=== PATIENT | female | born 1940 | race Two or more races ===

== ENCOUNTER 2017-11-01 18:47 | Inpatient (IN) | payer OTHER ==
[~2017-11-01] VITALS: Ht 157.5 cm; Wt 41.9 kg
[2017-11-01 18:47] VITALS: BP 60/35
[~2017-11-01 18:47] MED LIST: ATENOLOL25 MG ORAL; Amikacin 400 MG in NS 110 ML IV SCH; OMEPRAZOLE40 M1 ORAL
[2017-11-01] MEDS ORDERED: Glucagon 1mg Inj IV ONE (19:45)
[2017-11-01 19:49] LABS: MEAN CORPUSCULAR HEMOGLOBIN 35.7 PG (27.0-31.0); MEAN CORPUSCULAR HGB CONC 32.8 G/DL (32.0-36.0); MEAN CORPUSCULAR VOLUME 109 FL (80-99); MEAN PLATELET VOLUME 7.4 FL (6.5-10.1); PLATELET COUNT 190 K/UL (150-450); RED BLOOD COUNT 2.17 M/UL (4.20-5.40); RED CELL DISTRIBUTION WIDTH 13.4 % (11.6-14.8)
[2017-11-01 19:55] LABS: WHITE BLOOD COUNT 23.8 K/UL (4.8-10.8)
[2017-11-01] MEDS ORDERED: Ampicillin/Sulbactam Sod 3 GM in NS 110 ML IV SCH (20:00)
[2017-11-01] MEDS ORDERED: NS 1000ml 1,700 ML IVLG ONE (20:00)
[2017-11-01 20:07] LABS: INR 1.2 (0.9-1.1); PROTHROMBIN TIME 12.3 SEC (9.30-11.50)
[2017-11-01] MEDS ORDERED: Unasyn 3gm Inj ONE (20:23)
[2017-11-01 20:29] LABS: ALANINE AMINOTRANSFERASE 79 U/L (12-78); ALBUMIN/GLOBULIN RATIO 0.4 (1.0-2.7); ANION GAP 14 mmol/L (5-15); ASPARTATE AMINO TRANSFERASE 105 U/L (15-37); CALCIUM 8.1 MG/DL (8.5-10.1); CARBON DIOXIDE 21 MMOL/L (21-32); CHLORIDE 104 MMOL/L (98-107); CKMB 5.9 NG/ML (0.0-3.6); CREATININE 1.6 MG/DL (0.55-1.30); SODIUM 139 MMOL/L (136-145); TOTAL PROTEIN 5.2 G/DL (6.4-8.2)
[2017-11-01 20:30] LABS: POTASSIUM 1.8 MMOL/L (3.5-5.1)
[2017-11-01 20:31] LABS: BILIRUBIN,DIRECT 18.1 MG/DL (0.0-0.3)
[2017-11-01 20:38] LABS: ANISOCYTOSIS 1+; BAND NEUTROPHILS % (MANUAL) 5 % (0-8); LYMPHOCYTES % (MANUAL) 1 % (20-45); MACROCYTES 3+; NEUTROPHILS % (MANUAL) 92 % (45-75); POLYCHROMASIA 1+; TOTAL CELLS COUNTED 100
[2017-11-01 20:39] LABS: PLATELET MORPHOLOGY NORMAL
[2017-11-01 20:40] LABS: BASOPHILS % (MANUAL) 0 % (0-2); EOSINOPHILS % (MANUAL) 0 % (0-3); PLATELET ESTIMATE ADEQUATE
[2017-11-01] MEDS ORDERED: Lidocaine 1% MPF 10mg/ml 5ml ONE (20:45)
[2017-11-01] MEDS ORDERED: Potassium Chloride 40 MEQ in Sodium Chloride 500ML 550 ML IVPB ONE (21:15)
[2017-11-01 22:09] VITALS: BP 106/58
[2017-11-01] MEDS ORDERED: Miralax 17gm pkt ORAL PRN (22:15)
[2017-11-01] MEDS ORDERED: Albuterol/Ipratropium 3ml neb HHN PRN (22:15)
[2017-11-01 23:30] VITALS: BP 78/45
[2017-11-02] VITALS (56 sets, daily range): BP systolic 73–133; BP diastolic 36–62
[2017-11-02] MEDS ORDERED: Levophed 4mg/4mL Inj IV ONE (00:38)
[2017-11-02] MEDS ORDERED: Vancomycin 1gm inj IVPB ONE (00:58)
[2017-11-02] MEDS ORDERED: Amikacin 500mg/2mL Inj ONE (00:59)
[2017-11-02] MEDS ORDERED: Unasyn 3gm Inj ONE (00:59)
[2017-11-02] MEDS ORDERED: Vancomycin 1 GM in D5W 275 ML IVPB SCH (01:00)
--- NOTE | 2017-11-02 01:31 | Emergency Room Report ---
History of Present Illness General Chief Complaint: Back Pain-No Injury Source: Patient Present Illness HPI Patient is a 77-year-old female brought in by EMS after increased back pain. The patient had prior history of pancreatic CA. She was noted markedly jaundice. The patient reports having increased generalized weakness. This had gradual onset. She denied any recent fever. She had recently been hospitalized at [facility]. Allergies: Coded Allergies: CODEINE (Verified Allergy, Unknown, 06/07/16) Patient History Past Medical History: see triage record Now: No Reviewed Nursing Documentation: PMH: Agreed, PSxH: Agreed Nursing Documentation-PMH Past Medical History: No History, Except For Hx Cardiac Problems: Yes Hx Hypertension: Yes Hx Cancer: Yes Hx Gastrointestinal Problems: Yes Hx Neurological Problems: No Review of Systems All Other Systems: limited - by mental status Physical Exam Vital Signs Date Time Temp Pulse Resp B/P (MAP) Pulse Ox O2 Delivery O2 Flow Rate FiO2 11/01/17 18:14 97.9 88 16 70/30 96 Room Air Sp02 EP Interpretation: reviewed, normal General Appearance: alert, GCS 15, Chronically Ill Head: atraumatic Eyes: bilateral eye scleral icterus ENT: normal ENT inspection, hearing grossly normal, normal voice Neck: normal inspection, full range of motion, supple, no bony tend Respiratory: normal inspection, lungs clear, normal breath sounds, no respiratory distress, no retraction, no wheezing Cardiovascular #1: regular rate, rhythm, JVD Gastrointestinal: soft, no guarding, mass Genitourinary: no CVA tenderness Musculoskeletal: normal inspection, back normal, normal range of motion Neurologic: normal inspection, alert, oriented x3, responsive, marzipan maker III-XII nml as tested, speech normal Psychiatric: normal inspection, judgement/insight normal, mood/affect normal Skin: normal inspection, normal color, no rash Procedures Critical Care Time Critical Care Time Patient had a critical medical condition which untreated could potentially result in life or limb threatening injury. Total critical care time excluding procedures approximately 45 minutes. Central Line Central Line : Consent: Emergent Central Line Lumen: triple Maximal Sterile Barrier Tech: yes cap, yes mask, yes sterile gown, yes sterile gloves, yes large sterile sheet, yes hand hygiene, yes chlorhexidine prep Central Line Postion: internal jugular (R) Anesthesia: Lidocaine cc's of anesthesia: 4 Complications: none Central Line Post Position: sutured, good blood return, position confirmed w / CXR Attempts: One Patient Tolerated: Well Complications: None Medical Decision Making Diagnostic Impression: Primary Impression: Gallbladder mass Additional Impressions: Abdominal pain Hypokalemia Hypotension Severe sepsis ER Course Patient presented for abdominal pain and back pain.. Differential diagnoses included ischemic bowel, appendicitis, perforated viscus, abdominal aortic aneurysm, inferior myocardial infarction, viral gastroenteritis Because of complexity of patient's case laboratory testing and imaging studies were ordered. The patient was noted to have markedly elevated liver function tests as well as markedly hypokalemia. Central venous line was placed under sterile technique. The patient started on IV potassium replacement as well as IV fluids. She was given IV antibiotics. Dr. Kike Terry was contacted for inpatient management. Patient started on IV fluids and versus reassessed she was noted to have improvement in her blood pressure as well as perfusion. Patient's cap refill was improved. The patient was noted to have a relative bradycardia. The patient was noted to be hypotensive which may be due to patient's concurrent use of beta blockers and blood pressure medications with infection Labs Test 11/01/17 19:15 White Blood Count 23.8 K/UL (4.8-10.8) Red Blood Count 2.17 M/UL (4.20-5.40) Hemoglobin 7.8 G/DL (12.0-16.0) Hematocrit 23.7 % (37.0-47.0) Mean Corpuscular Volume 109 FL (80-99) Mean Corpuscular Hemoglobin 35.7 PG (27.0-31.0) Mean Corpuscular Hemoglobin Concent 32.8 G/DL (32.0-36.0) Red Cell Distribution Width 13.4 % (11.6-14.8) Platelet Count 190 K/UL (150-450) Mean Platelet Volume 7.4 FL (6.5-10.1) Neutrophils (%) (Auto) % (45.0-75.0) Lymphocytes (%) (Auto) % (20.0-45.0) Monocytes (%) (Auto) % (1.0-10.0) Eosinophils (%) (Auto) % (0.0-3.0) Basophils (%) (Auto) % (0.0-2.0) Differential Total Cells Counted 100 Neutrophils % (Manual) 92 % (45-75) Lymphocytes % (Manual) 1 % (20-45) Monocytes % (Manual) 2 % (1-10) Eosinophils % (Manual) 0 % (0-3) Basophils % (Manual) 0 % (0-2) Band Neutrophils 5 % (0-8) Platelet Estimate Adequate Platelet Morphology Normal Polychromasia 1+ Anisocytosis 1+ Macrocytosis 3+ Prothrombin Time 12.3 SEC (9.30-11.50) Prothromb Time International Ratio 1.2 (0.9-1.1) Activated Partial Thromboplast Time 48 SEC (23-33) Sodium Level 139 MMOL/L (136-145) Potassium Level 1.8 MMOL/L (3.5-5.1) Chloride Level 104 MMOL/L (98-107) Carbon Dioxide Level 21 MMOL/L (21-32) Anion Gap 14 mmol/L (5-15) Blood Urea Nitrogen 38 mg/dL (7-18) Creatinine 1.6 MG/DL (0.55-1.30) Estimat Glomerular Filtration Rate mL/min (>60) Glucose Level 87 MG/DL (74-106) Lactic Acid Level 1.90 mmol/L (0.66-2.22) Calcium Level 8.1 MG/DL (8.5-10.1) Total Bilirubin 20.5 MG/DL (0.2-1.0) Direct Bilirubin 18.1 MG/DL (0.0-0.3) Aspartate Amino Transf (AST/SGOT) 105 U/L (15-37) Alanine Aminotransferase (ALT/SGPT) 79 U/L (12-78) Alkaline Phosphatase 1010 U/L (46-116) Total Creatine Kinase 46 U/L (26-308) Creatine Kinase MB 5.9 NG/ML (0.0-3.6) Creatine Kinase MB Relative Index 12.8 Troponin I 0.312 ng/mL (0.000-0.056) Total Protein 5.2 G/DL (6.4-8.2) Albumin 1.4 G/DL (3.4-5.0) Globulin 3.8 g/dL Albumin/Globulin Ratio 0.4 (1.0-2.7) Last Vital Signs Date Time Temp Pulse Resp B/P (MAP) Pulse Ox O2 Delivery O2 Flow Rate FiO2 11/02/17 00:45 78/38 11/01/17 23:08 97.9 74 17 100 Room Air 63 Status: improved Disposition: ADMITTED INPATIENT Condition: Critical Referrals: NOT CHOSEN IPA/,REFERRING (PCP) Jonnie Thorpe Nov 02, 2017 01:31
[2017-11-02] MEDS ORDERED: Ertapenem (INVanz) 1gm Inj ONE (01:58)
[2017-11-02] MEDS ORDERED: Amikacin 400 MG in NS 110 ML IV SCH (02:00)
[2017-11-02] MEDS ORDERED: Ertapenem 0.5 GM in NS 55 ML IV SCH ×3 (03:00)
[2017-11-02 05:14] LABS: MEAN CORPUSCULAR HEMOGLOBIN 36.1 PG (27.0-31.0); MEAN CORPUSCULAR HGB CONC 32.5 G/DL (32.0-36.0); MEAN CORPUSCULAR VOLUME 111 FL (80-99); MEAN PLATELET VOLUME 7.4 FL (6.5-10.1); PLATELET COUNT 292 K/UL (150-450); RED BLOOD COUNT 2.28 M/UL (4.20-5.40); RED CELL DISTRIBUTION WIDTH 13.9 % (11.6-14.8)
[2017-11-02 05:22] LABS: WHITE BLOOD COUNT 36.8 K/UL (4.8-10.8)
[2017-11-02 05:56] LABS: ALANINE AMINOTRANSFERASE 93 U/L (12-78); ALBUMIN/GLOBULIN RATIO 0.4 (1.0-2.7); ANION GAP 16 mmol/L (5-15); ASPARTATE AMINO TRANSFERASE 130 U/L (15-37); BILIRUBIN,DIRECT 19.8 MG/DL (0.0-0.3); CALCIUM 7.7 MG/DL (8.5-10.1); CARBON DIOXIDE 18 MMOL/L (21-32); CHLORIDE 107 MMOL/L (98-107); CREATININE 1.6 MG/DL (0.55-1.30); POTASSIUM 2.8 MMOL/L (3.5-5.1); SODIUM 140 MMOL/L (136-145); TOTAL PROTEIN 5.5 G/DL (6.4-8.2)
[2017-11-02 07:09] LABS: BAND NEUTROPHILS % (MANUAL) 3 % (0-8); LYMPHOCYTES % (MANUAL) 4 % (20-45); NEUTROPHILS % (MANUAL) 88 % (45-75); TOTAL CELLS COUNTED 100
[2017-11-02 07:11] LABS: ANISOCYTOSIS 1+; BASOPHILS % (MANUAL) 0 % (0-2); EOSINOPHILS % (MANUAL) 0 % (0-3); HYPOCHROMASIA 2+; MACROCYTES 2+; PLATELET ESTIMATE ADEQUATE
[2017-11-02 07:12] LABS: PLATELET MORPHOLOGY NORMAL
[2017-11-02] MEDS: Pantoprazole Inj IVP SCH (08:17)
[2017-11-02] MEDS: Heparin 5000 units/ml inj SUBQ SCH ×2 (08:18→20:23)
[2017-11-02 09:21] LABS: OTHERS PATHOLOGIST COMMENT
[2017-11-02 09:31] LABS: ABG ALLEN TEST POSITIVE; ABG BASE EXCESS -9.5; ABG PCO2 27.1 mmHg (35.0-45.0)
--- NOTE | 2017-11-02 10:16 | GI Initial Consult Note ---
History of Present Illness General Date patient seen: Nov 02, 2017 Time patient seen: 09:57 Reason for Hospitalization: Back Pain-No Injury Present Illness HPI Patient is a 77-year-old female brought in by EMS after increased back pain. The patient had prior history of pancreatic CA. She was noted markedly jaundice. The patient reports having increased generalized weakness. This had gradual onset. She denied any recent fever. She had recently been hospitalized at [facility]. GI consulted for obstructive biliary disease 2/2 GB mass. HPI as noted above. Pt seen in ICU, awake A&Ox4 NAD with apparent jaundice. Patient has history of ERCP performed 06-09-16, see summary of findings below for 4x3cm gallbladder mass. She presents today with leukocytosis, anemia, transaminitis, hyperbilirubinemia, and elevated alkaline phosphatase. Noted patient has abdominal pigtail x 2. ERCP 06-09-16 SUMMARY OF FINDINGS: Gallbladder mass with associated hilar stricture and biliary duct dilatation, status post endoscopic retrograde cholangiopancreatography, sphincterotomy, dilatation, and stent placement. Home Meds Reported Medications Omeprazole (OMEPRAZOLE) 40 Mg Capsule.dr, 40 MG ORAL DAILY, CAP 06/07/16 Atenolol* (TENORMIN*) 25 Mg Tablet, 25 MG ORAL DAILY, TAB 06/07/16 Med list reviewed/reconciled: Yes Allergies: Coded Allergies: CODEINE (Verified Allergy, Unknown, 06/07/16) Patient History History Provided By: Patient, Medical Record PMH Narrative Past Medical History: see triage record Now: No Reviewed Nursing Documentation: PMH: Agreed, PSxH: Agreed Nursing Documentation-PMH Past Medical History: No History, Except For Hx Cardiac Problems: Yes Hx Hypertension: Yes Hx Cancer: Yes Hx Gastrointestinal Problems: Yes Hx Neurological Problems: No Review of Systems All Other Systems: negative except mentioned in HPI Physical Exam Vital Signs Date Time Temp Pulse Resp B/P (MAP) Pulse Ox O2 Delivery O2 Flow Rate FiO2 11/01/17 18:14 97.9 88 16 70/30 96 Room Air 11/02/17 07:01 21 Sp02 EP Interpretation: reviewed, normal Labs Laboratory Tests Test 11/01/17 19:15 11/02/17 04:25 11/02/17 09:25 White Blood Count 23.8 K/UL (4.8-10.8) *H 36.8 K/UL (4.8-10.8) #*H Red Blood Count 2.17 M/UL (4.20-5.40) L 2.28 M/UL (4.20-5.40) L Hemoglobin 7.8 G/DL (12.0-16.0) L 8.2 G/DL (12.0-16.0) L Hematocrit 23.7 % (37.0-47.0) L 25.3 % (37.0-47.0) L Mean Corpuscular Volume 109 FL (80-99) H 111 FL (80-99) H Mean Corpuscular Hemoglobin 35.7 PG (27.0-31.0) H 36.1 PG (27.0-31.0) H Mean Corpuscular Hemoglobin Concent 32.8 G/DL (32.0-36.0) 32.5 G/DL (32.0-36.0) Red Cell Distribution Width 13.4 % (11.6-14.8) 13.9 % (11.6-14.8) Platelet Count 190 K/UL (150-450) 292 K/UL (150-450) # Mean Platelet Volume 7.4 FL (6.5-10.1) 7.4 FL (6.5-10.1) Neutrophils (%) (Auto) % (45.0-75.0) % (45.0-75.0) Lymphocytes (%) (Auto) % (20.0-45.0) % (20.0-45.0) Monocytes (%) (Auto) % (1.0-10.0) % (1.0-10.0) Eosinophils (%) (Auto) % (0.0-3.0) % (0.0-3.0) Basophils (%) (Auto) % (0.0-2.0) % (0.0-2.0) Differential Total Cells Counted 100 100 Neutrophils % (Manual) 92 % (45-75) H 88 % (45-75) H Lymphocytes % (Manual) 1 % (20-45) L 4 % (20-45) L Monocytes % (Manual) 2 % (1-10) 5 % (1-10) Eosinophils % (Manual) 0 % (0-3) 0 % (0-3) Basophils % (Manual) 0 % (0-2) 0 % (0-2) Band Neutrophils 5 % (0-8) 3 % (0-8) Other Cell Type Pathologist comment Platelet Estimate Adequate Adequate Platelet Morphology Normal Normal Polychromasia 1+ Anisocytosis 1+ 1+ Macrocytosis 3+ 2+ Prothrombin Time 12.3 SEC (9.30-11.50) H Prothromb Time International Ratio 1.2 (0.9-1.1) H Activated Partial Thromboplast Time 48 SEC (23-33) H Sodium Level 139 MMOL/L (136-145) 140 MMOL/L (136-145) Potassium Level 1.8 MMOL/L (3.5-5.1) *L 2.8 MMOL/L (3.5-5.1) #L Chloride Level 104 MMOL/L (98-107) 107 MMOL/L (98-107) Carbon Dioxide Level 21 MMOL/L (21-32) 18 MMOL/L (21-32) L Anion Gap 14 mmol/L (5-15) 16 mmol/L (5-15) H Blood Urea Nitrogen 38 mg/dL (7-18) H 34 mg/dL (7-18) H Creatinine 1.6 MG/DL (0.55-1.30) H 1.6 MG/DL (0.55-1.30) H Estimat Glomerular Filtration Rate mL/min (>60) mL/min (>60) Glucose Level 87 MG/DL (74-106) 113 MG/DL (74-106) H Lactic Acid Level 1.90 mmol/L (0.66-2.22) Calcium Level 8.1 MG/DL (8.5-10.1) L 7.7 MG/DL (8.5-10.1) L Total Bilirubin 20.5 MG/DL (0.2-1.0) H 22.1 MG/DL (0.2-1.0) H Direct Bilirubin 18.1 MG/DL (0.0-0.3) H 19.8 MG/DL (0.0-0.3) H Aspartate Amino Transf (AST/SGOT) 105 U/L (15-37) H 130 U/L (15-37) H Alanine Aminotransferase (ALT/SGPT) 79 U/L (12-78) H 93 U/L (12-78) H Alkaline Phosphatase 1010 U/L (46-116) H 1005 U/L (46-116) H Total Creatine Kinase 46 U/L (26-308) Creatine Kinase MB 5.9 NG/ML (0.0-3.6) H Creatine Kinase MB Relative Index 12.8 Troponin I 0.312 ng/mL (0.000-0.056) 1.528 ng/mL (0.000-0.056) Total Protein 5.2 G/DL (6.4-8.2) L 5.5 G/DL (6.4-8.2) L Albumin 1.4 G/DL (3.4-5.0) L 1.5 G/DL (3.4-5.0) L Globulin 3.8 g/dL 4.0 g/dL Albumin/Globulin Ratio 0.4 (1.0-2.7) L 0.4 (1.0-2.7) L Hypochromasia 2+ Arterial Blood pH 7.357 (7.350-7.450) Arterial Blood Partial Pressure CO2 27.1 mmHg (35.0-45.0) L Arterial Blood Partial Pressure O2 95.6 mmHg (75.0-100.0) Arterial Blood HCO3 14.9 mmol/L (22.0-26.0) L Arterial Blood Oxygen Saturation 96.3 % (92.0-98.0) Arterial Blood Base Excess -9.5 Chet Test Positive General Appearance: no apparent distress, alert, thin, other - jaundice Head: normocephalic EENT: PERRL/EOMI, normal ENT inspection Neck: supple Respiratory: normal breath sounds, no respiratory distress Cardiovascular: normal rate Gastrointestinal: normal inspection, non tender, soft, normal bowel sounds, non -distended Rectal: deferred Genitourinary: no CVA tenderness Musculoskeletal: normal inspection, back normal Neurologic: normal inspection, alert, oriented x3, responsive Psychiatric: normal inspection, judgement/insight normal, memory normal Skin: no rash, warm/dry, palpation normal, jaundice Lymphatic: no adenopathy Current Medications Current Medications Medications (Trade) Dose Ordered Sig/Yvonne Route PRN Reason Start Time Stop Time Status Last Admin Dose Admin Acetaminophen (Tylenol) 650 mg Q4H PRN ORAL fever 11/01/17 22:15 1/6/18 22:14 Albuterol/ Ipratropium (Albuterol/ Ipratropium) 3 ml EVERY 4 HOURS PRN HHN Shortness of Breath 11/01/17 22:15 11/06/17 22:14 Amikacin Sulfate 300 mg/Sodium Chloride 56.2 ml @ 110 mls/hr Q24H IV 11/03/17 02:00 11/10/17 01:59 Heparin Sodium (Porcine) (Heparin 5000 units/ml) 5,000 units EVERY 12 HOURS SUBQ 11/02/17 09:00 12/02/17 08:59 11/02/17 08:18 Norepinephrine Bitartrate 4 mg/ Dextrose 254 ml @ 0 mls/hr Q24H IV 11/01/17 22:15 12/01/17 22:14 11/02/17 09:15 Ondansetron HCl (Zofran) 4 mg Q6H PRN IVP Nausea & Vomiting 11/01/17 22:15 12/01/17 22:14 Pantoprazole (Protonix) 40 mg DAILY IVP 11/02/17 09:00 12/02/17 08:59 11/02/17 08:17 Polyethylene Glycol (Miralax) 17 gm DAILYPRN PRN ORAL Constipation 11/01/17 22:15 12/01/17 22:14 Potassium Chloride 100 ml @ 50 mls/hr ONCE ONCE IVPB 11/02/17 09:30 11/02/17 11:29 Sodium Chloride 1,000 ml @ 100 mls/hr Q10H IVLG 11/01/17 22:12 12/01/17 22:11 11/02/17 08:08 Vancomycin HCl (Vanco rx to dose) 1 ea DAILY PRN MISC . 11/02/17 09:45 12/02/17 09:44 GI: Plan Problems: (1) Gallbladder mass (2) Abdominal pain (3) Jaundice (4) Elevated transaminase level (5) Hepatitis (6) Hyperbilirubinemia Plan ERCP scheduled for today. Patient is DNR/DNI, but agreed to have code status changed to FULL during procedure. Discussed with Dr. Schaffer. Thank you for this patient referral, we will follow. Gricel Gar N.P. Nov 02, 2017 10:16
--- NOTE | 2017-11-02 11:09 | History and Physical ---
History of Present Illness General Date patient seen: Nov 02, 2017 Reason for Hospitalization: Back Pain-No Injury Present Illness HPI 77-year-old female with history of pancreatic CA brought in by EMS with CC of increased back pain. She was noted to be markedly jaundice. The patient reports having increased generalized weakness. She denied any recent fever. She was hypotensive and started on Levophed and transferred to ICU. Allergies: Coded Allergies: CODEINE (Verified Allergy, Unknown, 06/07/16) Medication History Scheduled Atenolol* (Tenormin*), 25 MG ORAL DAILY, (Reported) Omeprazole (Omeprazole), 40 MG ORAL DAILY, (Reported) Patient History Healthcare decision maker self Resuscitation status Full Code Advanced Directive on File No Past Medical/Surgical History Past Medical/Surgical History: (1) Pancreas cancer Review of Systems Constitutional: Reports: malaise, weakness Eye: Reports: other - icteric ENT: Reports: no symptoms Respiratory: Reports: no symptoms Cardiovascular: Reports: no symptoms Gastrointestinal: Reports: no symptoms, other - 2 tubes coming out of RUQ, not much draining Genitourinary: Reports: no symptoms Musculoskeletal: Reports: no symptoms Skin: Reports: no symptoms Psychiatric: Reports: no symptoms Physical Exam General Appearance: cachetic Lines, tubes and drains: peripheral HEENT: normocephalic, atraumatic Neck: non-tender, normal alignment Respiratory/Chest: chest wall non-tender, lungs clear Breasts: no masses Cardiovascular/Chest: normal peripheral pulses Abdomen: normal bowel sounds, non tender Genitourinary/Rectal: normal genital exam Extremities: normal range of motion, non-tender Skin Exam: normal pigmentation Last 24 Hour Vital Signs Date Time Temp Pulse Resp B/P (MAP) Pulse Ox O2 Delivery O2 Flow Rate FiO2 11/02/17 10:30 65 11 97/46 100 Room Air 11/02/17 10:00 113/53 11/02/17 10:00 67 16 113/53 100 Room Air 11/02/17 09:30 64 17 105/51 100 Room Air 11/02/17 09:15 116/50 11/02/17 09:00 63 18 116/50 100 Room Air 11/02/17 08:30 98.4 63 15 109/54 100 Room Air 11/02/17 08:00 105/57 11/02/17 08:00 66 10 124/60 100 Room Air 11/02/17 07:31 69 11/02/17 07:30 67 16 105/57 100 Room Air 11/02/17 07:01 64 15 Room Air 21 11/02/17 07:00 110/56 11/02/17 07:00 65 15 110/56 100 Room Air 11/02/17 06:30 66 17 110/53 100 Room Air 11/02/17 06:00 110/53 11/02/17 06:00 66 17 96/42 100 Room Air 11/02/17 05:30 67 15 113/47 100 Room Air 11/02/17 05:00 108/50 11/02/17 05:00 68 17 108/50 100 Room Air 11/02/17 04:30 70 15 106/44 100 Room Air 11/02/17 04:00 73 11/02/17 04:00 97.9 71 18 108/53 100 Room Air 11/02/17 04:00 106/44 11/02/17 03:30 73 16 108/47 100 Room Air 11/02/17 03:00 88/41 11/02/17 03:00 70 17 89/41 100 Room Air 11/02/17 02:30 70 16 97/45 100 Room Air 11/02/17 02:00 72 16 103/51 100 Room Air 11/02/17 02:00 103/51 11/02/17 01:30 65 16 85/45 100 Room Air 11/02/17 01:00 73/36 11/02/17 01:00 63 14 73/36 100 Room Air 11/02/17 00:45 78/38 11/02/17 00:30 63 13 78/38 100 Room Air 11/02/17 00:00 65 12 82/44 100 Room Air 11/02/17 00:00 65 11/01/17 23:30 93.9 66 13 78/45 100 Room Air 11/01/17 23:08 97.9 74 17 106/58 100 Room Air 63 11/01/17 22:09 97.9 63 17 106/58 100 Room Air 11/01/17 19:30 97/53 11/01/17 18:47 74 17 60/35 100 Room Air 11/01/17 18:14 97.9 88 16 70/30 96 Room Air Intake and Output 11/02/17 11/03/17 19:00 07:00 Intake Total 483.82 ml Output Total 0 ml Balance 483.82 ml IV Total 483.82 ml Output Urine Total 0 ml Laboratory Tests Test 11/01/17 19:15 11/02/17 04:25 11/02/17 09:25 White Blood Count 23.8 K/UL (4.8-10.8) *H 36.8 K/UL (4.8-10.8) #*H Red Blood Count 2.17 M/UL (4.20-5.40) L 2.28 M/UL (4.20-5.40) L Hemoglobin 7.8 G/DL (12.0-16.0) L 8.2 G/DL (12.0-16.0) L Hematocrit 23.7 % (37.0-47.0) L 25.3 % (37.0-47.0) L Mean Corpuscular Volume 109 FL (80-99) H 111 FL (80-99) H Mean Corpuscular Hemoglobin 35.7 PG (27.0-31.0) H 36.1 PG (27.0-31.0) H Mean Corpuscular Hemoglobin Concent 32.8 G/DL (32.0-36.0) 32.5 G/DL (32.0-36.0) Red Cell Distribution Width 13.4 % (11.6-14.8) 13.9 % (11.6-14.8) Platelet Count 190 K/UL (150-450) 292 K/UL (150-450) # Mean Platelet Volume 7.4 FL (6.5-10.1) 7.4 FL (6.5-10.1) Neutrophils (%) (Auto) % (45.0-75.0) % (45.0-75.0) Lymphocytes (%) (Auto) % (20.0-45.0) % (20.0-45.0) Monocytes (%) (Auto) % (1.0-10.0) % (1.0-10.0) Eosinophils (%) (Auto) % (0.0-3.0) % (0.0-3.0) Basophils (%) (Auto) % (0.0-2.0) % (0.0-2.0) Differential Total Cells Counted 100 100 Neutrophils % (Manual) 92 % (45-75) H 88 % (45-75) H Lymphocytes % (Manual) 1 % (20-45) L 4 % (20-45) L Monocytes % (Manual) 2 % (1-10) 5 % (1-10) Eosinophils % (Manual) 0 % (0-3) 0 % (0-3) Basophils % (Manual) 0 % (0-2) 0 % (0-2) Band Neutrophils 5 % (0-8) 3 % (0-8) Other Cell Type Pathologist comment Platelet Estimate Adequate Adequate Platelet Morphology Normal Normal Polychromasia 1+ Anisocytosis 1+ 1+ Macrocytosis 3+ 2+ Prothrombin Time 12.3 SEC (9.30-11.50) H Prothromb Time International Ratio 1.2 (0.9-1.1) H Activated Partial Thromboplast Time 48 SEC (23-33) H Sodium Level 139 MMOL/L (136-145) 140 MMOL/L (136-145) Potassium Level 1.8 MMOL/L (3.5-5.1) *L 2.8 MMOL/L (3.5-5.1) #L Chloride Level 104 MMOL/L (98-107) 107 MMOL/L (98-107) Carbon Dioxide Level 21 MMOL/L (21-32) 18 MMOL/L (21-32) L Anion Gap 14 mmol/L (5-15) 16 mmol/L (5-15) H Blood Urea Nitrogen 38 mg/dL (7-18) H 34 mg/dL (7-18) H Creatinine 1.6 MG/DL (0.55-1.30) H 1.6 MG/DL (0.55-1.30) H Estimat Glomerular Filtration Rate mL/min (>60) mL/min (>60) Glucose Level 87 MG/DL (74-106) 113 MG/DL (74-106) H Lactic Acid Level 1.90 mmol/L (0.66-2.22) Calcium Level 8.1 MG/DL (8.5-10.1) L 7.7 MG/DL (8.5-10.1) L Total Bilirubin 20.5 MG/DL (0.2-1.0) H 22.1 MG/DL (0.2-1.0) H Direct Bilirubin 18.1 MG/DL (0.0-0.3) H 19.8 MG/DL (0.0-0.3) H Aspartate Amino Transf (AST/SGOT) 105 U/L (15-37) H 130 U/L (15-37) H Alanine Aminotransferase (ALT/SGPT) 79 U/L (12-78) H 93 U/L (12-78) H Alkaline Phosphatase 1010 U/L (46-116) H 1005 U/L (46-116) H Total Creatine Kinase 46 U/L (26-308) Creatine Kinase MB 5.9 NG/ML (0.0-3.6) H Creatine Kinase MB Relative Index 12.8 Troponin I 0.312 ng/mL (0.000-0.056) 1.528 ng/mL (0.000-0.056) Total Protein 5.2 G/DL (6.4-8.2) L 5.5 G/DL (6.4-8.2) L Albumin 1.4 G/DL (3.4-5.0) L 1.5 G/DL (3.4-5.0) L Globulin 3.8 g/dL 4.0 g/dL Albumin/Globulin Ratio 0.4 (1.0-2.7) L 0.4 (1.0-2.7) L Hypochromasia 2+ Arterial Blood pH 7.357 (7.350-7.450) Arterial Blood Partial Pressure CO2 27.1 mmHg (35.0-45.0) L Arterial Blood Partial Pressure O2 95.6 mmHg (75.0-100.0) Arterial Blood HCO3 14.9 mmol/L (22.0-26.0) L Arterial Blood Oxygen Saturation 96.3 % (92.0-98.0) Arterial Blood Base Excess -9.5 Chet Test Positive Height (Feet): 5 Height (Inches): 2.00 Weight (Pounds): 91 Medications Current Medications Medications (Trade) Dose Ordered Sig/Yvonne Route PRN Reason Start Time Stop Time Status Last Admin Dose Admin Acetaminophen (Tylenol) 650 mg Q4H PRN ORAL fever 11/01/17 22:15 12/01/17 22:14 Albuterol/ Ipratropium (Albuterol/ Ipratropium) 3 ml EVERY 4 HOURS PRN HHN Shortness of Breath 11/01/17 22:15 11/06/17 22:14 Amikacin Sulfate 300 mg/Sodium Chloride 56.2 ml @ 110 mls/hr Q24H IV 11/03/17 02:00 11/10/17 01:59 Heparin Sodium (Porcine) (Heparin 5000 units/ml) 5,000 units EVERY 12 HOURS SUBQ 11/02/17 09:00 12/02/17 08:59 11/02/17 08:18 Norepinephrine Bitartrate 4 mg/ Dextrose 254 ml @ 0 mls/hr Q24H IV 11/01/17 22:15 12/01/17 22:14 11/02/17 09:15 Ondansetron HCl (Zofran) 4 mg Q6H PRN IVP Nausea & Vomiting 11/01/17 22:15 12/01/17 22:14 Pantoprazole (Protonix) 40 mg DAILY IVP 11/02/17 09:00 12/02/17 08:59 11/02/17 08:17 Polyethylene Glycol (Miralax) 17 gm DAILYPRN PRN ORAL Constipation 11/01/17 22:15 12/01/17 22:14 Potassium Chloride 100 ml @ 50 mls/hr ONCE ONCE IVPB 11/02/17 09:30 11/02/17 11:29 11/02/17 10:45 Sodium Chloride 1,000 ml @ 100 mls/hr Q10H IVLG 11/01/17 22:12 12/01/17 22:11 11/02/17 08:08 Vancomycin HCl (Vanco rx to dose) 1 ea DAILY PRN MISC . 11/02/17 09:45 12/02/17 09:44 Assessment/Plan Problem List: (1) Protein-calorie malnutrition, severe ICD Codes: E43 - Unspecified severe protein-calorie malnutrition SNOMED: 287887412 (2) Severe sepsis ICD Codes: A41.9 - Sepsis, unspecified organism; R65.20 - Severe sepsis without septic shock SNOMED: 68384231 (3) Jaundice ICD Codes: R17 - Unspecified jaundice SNOMED: 48133442 (4) Biliary drain displacement ICD Codes: T85.520A - Displacement of bile duct prosthesis, initial encounter SNOMED: 867726725 (5) Pancreas cancer ICD Codes: C25.9 - Malignant neoplasm of pancreas, unspecified SNOMED: 912945795 (6) Hyperbilirubinemia ICD Codes: E80.6 - Other disorders of bilirubin metabolism SNOMED: 20495345 Assessment/Plan NPO IV fluids check cultures IV abx GI and ID evaluation social service for code status. PHILIP SALEEM Nov 02, 2017 11:09
--- NOTE | 2017-11-02 11:17 | Consultation ---
Consult Note Consult Note asked to eval for renal failure Seen in ICU patient examined- data reviewed discussed with RN Patient is a 77-year-old female brought in by EMS after increased back pain. The patient had prior history of pancreatic CA. She was noted markedly jaundice. The patient reports having increased generalized weakness. This had gradual onset. She denied any recent fever. She had recently been hospitalized at [facility]. Allergies: CODEINE (Verified Allergy, Unknown, 06/07/16) Past Medical History: No History, Except For Hx Cardiac Problems: Yes Hx Hypertension: Yes Hx Cancer: Yes Hx Gastrointestinal Problems: Yes Hx Neurological Problems: No . Assessment/Plan Renal failure, Multifactorial: Cancer, Low Aklbumin , Liver failure , Sepsis Other: (1) Protein-calorie malnutrition, severe (2) Severe sepsis (3) Jaundice (4) Biliary drain displacement (5) Pancreas cancer (6) Rising troponin Plan: Correct electrolytes- Monitor renal parameters antibiotics Avoid nephrotoxics prognosis poor LINUS ZUÑIGA Nov 02, 2017 11:17
--- NOTE | 2017-11-02 11:25 | Cardiology Report ---
APPROVED REPORT EKG Measurement Heart [id number] Atrial fibrillation Nonspecific T wave abnormality Abnormal ECG
[2017-11-02 11:48] LABS: MAGNESIUM 1.9 MG/DL (1.8-2.4); PHOSPHORUS 3.4 MG/DL (2.5-4.9)
--- NOTE | 2017-11-02 12:52 | Consultation ---
History of Present Illness General Date patient seen: Nov 02, 2017 Time patient seen: 12:52 Chief Complaint: Back Pain-No Injury Present Illness HPI 77 y/o F with hx of HTN, GERD, pancreatic CA, GB mass s/p pigtail catheter x2 presents to ED on 11/01 with increased back pain and generalized weakness. 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 Allergies: Coded Allergies: CODEINE (Verified Allergy, Unknown, 06/07/16) Medication History Scheduled Atenolol* (Tenormin*), 25 MG ORAL DAILY, (Reported) Omeprazole (Omeprazole), 40 MG ORAL DAILY, (Reported) Patient History Healthcare decision maker self Resuscitation status Full Code Advanced Directive on File No Patient History Narrative Pmhx: as above Shx reviewed Fhx non contributory Review of Systems ROS Narrative unable to obtain Physical Exam Physical Exam Narrative not done as patient in procedure suite Last 24 Hour Vital Signs Date Time Temp Pulse Resp B/P (MAP) Pulse Ox O2 Delivery O2 Flow Rate FiO2 11/02/17 11:00 66 19 98/50 100 Room Air 11/02/17 11:00 97/46 11/02/17 10:30 65 11 97/46 100 Room Air 11/02/17 10:00 113/53 11/02/17 10:00 67 16 113/53 100 Room Air 11/02/17 09:30 64 17 105/51 100 Room Air 11/02/17 09:15 116/50 11/02/17 09:00 63 18 116/50 100 Room Air 11/02/17 08:30 98.4 63 15 109/54 100 Room Air 11/02/17 08:00 105/57 11/02/17 08:00 66 10 124/60 100 Room Air 11/02/17 07:31 69 11/02/17 07:30 67 16 105/57 100 Room Air 11/02/17 07:01 64 15 Room Air 21 11/02/17 07:00 110/56 11/02/17 07:00 65 15 110/56 100 Room Air 11/02/17 06:30 66 17 110/53 100 Room Air 11/02/17 06:00 110/53 11/02/17 06:00 66 17 96/42 100 Room Air 11/02/17 05:30 67 15 113/47 100 Room Air 11/02/17 05:00 108/50 11/02/17 05:00 68 17 108/50 100 Room Air 11/02/17 04:30 70 15 106/44 100 Room Air 11/02/17 04:00 73 11/02/17 04:00 97.9 71 18 108/53 100 Room Air 11/02/17 04:00 106/44 11/02/17 03:30 73 16 108/47 100 Room Air 11/02/17 03:00 88/41 11/02/17 03:00 70 17 89/41 100 Room Air 11/02/17 02:30 70 16 97/45 100 Room Air 11/02/17 02:00 72 16 103/51 100 Room Air 11/02/17 02:00 103/51 11/02/17 01:30 65 16 85/45 100 Room Air 11/02/17 01:00 73/36 11/02/17 01:00 63 14 73/36 100 Room Air 11/02/17 00:45 78/38 11/02/17 00:30 63 13 78/38 100 Room Air 11/02/17 00:00 65 12 82/44 100 Room Air 11/02/17 00:00 65 11/01/17 23:30 93.9 66 13 78/45 100 Room Air 11/01/17 23:08 97.9 74 17 106/58 100 Room Air 63 11/01/17 22:09 97.9 63 17 106/58 100 Room Air 11/01/17 19:30 97/53 11/01/17 18:47 74 17 60/35 100 Room Air 11/01/17 18:14 97.9 88 16 70/30 96 Room Air Intake and Output 11/02/17 11/03/17 19:00 07:00 Intake Total 483.82 ml Output Total 0 ml Balance 483.82 ml IV Total 483.82 ml Output Urine Total 0 ml Laboratory Tests Test 11/01/17 19:15 11/02/17 04:25 11/02/17 09:25 White Blood Count 23.8 K/UL (4.8-10.8) *H 36.8 K/UL (4.8-10.8) #*H Red Blood Count 2.17 M/UL (4.20-5.40) L 2.28 M/UL (4.20-5.40) L Hemoglobin 7.8 G/DL (12.0-16.0) L 8.2 G/DL (12.0-16.0) L Hematocrit 23.7 % (37.0-47.0) L 25.3 % (37.0-47.0) L Mean Corpuscular Volume 109 FL (80-99) H 111 FL (80-99) H Mean Corpuscular Hemoglobin 35.7 PG (27.0-31.0) H 36.1 PG (27.0-31.0) H Mean Corpuscular Hemoglobin Concent 32.8 G/DL (32.0-36.0) 32.5 G/DL (32.0-36.0) Red Cell Distribution Width 13.4 % (11.6-14.8) 13.9 % (11.6-14.8) Platelet Count 190 K/UL (150-450) 292 K/UL (150-450) # Mean Platelet Volume 7.4 FL (6.5-10.1) 7.4 FL (6.5-10.1) Neutrophils (%) (Auto) % (45.0-75.0) % (45.0-75.0) Lymphocytes (%) (Auto) % (20.0-45.0) % (20.0-45.0) Monocytes (%) (Auto) % (1.0-10.0) % (1.0-10.0) Eosinophils (%) (Auto) % (0.0-3.0) % (0.0-3.0) Basophils (%) (Auto) % (0.0-2.0) % (0.0-2.0) Differential Total Cells Counted 100 100 Neutrophils % (Manual) 92 % (45-75) H 88 % (45-75) H Lymphocytes % (Manual) 1 % (20-45) L 4 % (20-45) L Monocytes % (Manual) 2 % (1-10) 5 % (1-10) Eosinophils % (Manual) 0 % (0-3) 0 % (0-3) Basophils % (Manual) 0 % (0-2) 0 % (0-2) Band Neutrophils 5 % (0-8) 3 % (0-8) Other Cell Type Pathologist comment Platelet Estimate Adequate Adequate Platelet Morphology Normal Normal Polychromasia 1+ Anisocytosis 1+ 1+ Macrocytosis 3+ 2+ Prothrombin Time 12.3 SEC (9.30-11.50) H Prothromb Time International Ratio 1.2 (0.9-1.1) H Activated Partial Thromboplast Time 48 SEC (23-33) H Sodium Level 139 MMOL/L (136-145) 140 MMOL/L (136-145) Potassium Level 1.8 MMOL/L (3.5-5.1) *L 2.8 MMOL/L (3.5-5.1) #L Chloride Level 104 MMOL/L (98-107) 107 MMOL/L (98-107) Carbon Dioxide Level 21 MMOL/L (21-32) 18 MMOL/L (21-32) L Anion Gap 14 mmol/L (5-15) 16 mmol/L (5-15) H Blood Urea Nitrogen 38 mg/dL (7-18) H 34 mg/dL (7-18) H Creatinine 1.6 MG/DL (0.55-1.30) H 1.6 MG/DL (0.55-1.30) H Estimat Glomerular Filtration Rate mL/min (>60) mL/min (>60) Glucose Level 87 MG/DL (74-106) 113 MG/DL (74-106) H Lactic Acid Level 1.90 mmol/L (0.66-2.22) Calcium Level 8.1 MG/DL (8.5-10.1) L 7.7 MG/DL (8.5-10.1) L Total Bilirubin 20.5 MG/DL (0.2-1.0) H 22.1 MG/DL (0.2-1.0) H Direct Bilirubin 18.1 MG/DL (0.0-0.3) H 19.8 MG/DL (0.0-0.3) H Aspartate Amino Transf (AST/SGOT) 105 U/L (15-37) H 130 U/L (15-37) H Alanine Aminotransferase (ALT/SGPT) 79 U/L (12-78) H 93 U/L (12-78) H Alkaline Phosphatase 1010 U/L (46-116) H 1005 U/L (46-116) H Total Creatine Kinase 46 U/L (26-308) Creatine Kinase MB 5.9 NG/ML (0.0-3.6) H Creatine Kinase MB Relative Index 12.8 Troponin I 0.312 ng/mL (0.000-0.056) 1.528 ng/mL (0.000-0.056) Total Protein 5.2 G/DL (6.4-8.2) L 5.5 G/DL (6.4-8.2) L Albumin 1.4 G/DL (3.4-5.0) L 1.5 G/DL (3.4-5.0) L Globulin 3.8 g/dL 4.0 g/dL Albumin/Globulin Ratio 0.4 (1.0-2.7) L 0.4 (1.0-2.7) L Hypochromasia 2+ Phosphorus Level 3.4 MG/DL (2.5-4.9) Magnesium Level 1.9 MG/DL (1.8-2.4) Arterial Blood pH 7.357 (7.350-7.450) Arterial Blood Partial Pressure CO2 27.1 mmHg (35.0-45.0) L Arterial Blood Partial Pressure O2 95.6 mmHg (75.0-100.0) Arterial Blood HCO3 14.9 mmol/L (22.0-26.0) L Arterial Blood Oxygen Saturation 96.3 % (92.0-98.0) Arterial Blood Base Excess -9.5 Chet Test Positive Height (Feet): 5 Height (Inches): 2.00 Weight (Pounds): 91 Medications Current Medications Medications (Trade) Dose Ordered Sig/Yvonne Route PRN Reason Start Time Stop Time Status Last Admin Dose Admin Acetaminophen (Tylenol) 650 mg Q4H PRN ORAL fever 11/01/17 22:15 12/01/17 22:14 Albuterol/ Ipratropium (Albuterol/ Ipratropium) 3 ml EVERY 4 HOURS PRN HHN Shortness of Breath 11/01/17 22:15 11/06/17 22:14 Amikacin Sulfate 300 mg/Sodium Chloride 56.2 ml @ 110 mls/hr Q24H IV 11/03/17 02:00 11/10/17 01:59 Heparin Sodium (Porcine) (Heparin 5000 units/ml) 5,000 units EVERY 12 HOURS SUBQ 11/02/17 09:00 12/02/17 08:59 11/02/17 08:18 Norepinephrine Bitartrate 4 mg/ Dextrose 254 ml @ 0 mls/hr Q24H IV 11/01/17 22:15 12/01/17 22:14 11/02/17 09:15 Ondansetron HCl (Zofran) 4 mg Q6H PRN IVP Nausea & Vomiting 11/01/17 22:15 12/01/17 22:14 Pantoprazole (Protonix) 40 mg DAILY IVP 11/02/17 09:00 12/02/17 08:59 11/02/17 08:17 Polyethylene Glycol (Miralax) 17 gm DAILYPRN PRN ORAL Constipation 11/01/17 22:15 12/01/17 22:14 Sodium Chloride 1,000 ml @ 100 mls/hr Q10H IVLG 11/01/17 22:12 12/01/17 22:11 11/02/17 08:08 Vancomycin HCl (Vanco rx to dose) 1 ea DAILY PRN MISC . 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 Will continue to follow along with you. Discussed with GIO. Venus Tapia M.D. Nov 02, 2017 12:52
[2017-11-02] MEDS ORDERED: Iothalamate Meglumine 60% 30ML INJ ONE (14:41)
--- NOTE | 2017-11-02 14:49 | Diagnostic Imaging Report ---
Indication: Shortness of breath Technique: XRAY CHEST 1 V Comparison: Coalition that images of the lower chest on CT of the abdomen 06/08/2016 Findings: Heart size and mediastinal contours are within normal limits. Atherosclerotic calcification is noted in the aortic arch. There is no focal airspace consolidation, pleural effusion or pneumothorax. No evidence of pulmonary edema. Multilevel degenerative changes are seen in the thoracic spine. No acute osseous abnormality seen. Portions of a catheter noted in the right upper quadrant, question retained biliary drainage catheter. Impression: No radiographic evidence of acute cardiopulmonary disease.
--- NOTE | 2017-11-02 15:04 | Anethesia Preoperative Eval ---
Anesthesia Pre-op PMH/ROS General Date of Evaluation: Nov 02, 2017 Time of Evaluation: 14:56 Anesthesiologist: navneet ASA Score: ASA 4 Mallampati Score Class I : Soft palate, uvula, fauces, pillars visible Class II: Soft palate, uvula, fauces visible Class III: Soft palate, base of uvula visible Class IV: Only hard plate visible Mallampati Classification: Class II Surgeon: bri Diagnosis: jaundice Surgical Procedure: ercp Allergies: Coded Allergies: CODEINE (Verified Allergy, Unknown, 06/07/16) Medications: see eMAR Past Medical History Cardiovascular: Reports: HTN Gastrointestinal/Genitourinary: Reports: other - pancreatic cancer, gallbladder disease Anesthesia Pre-op Phys. Exam Physician Exam Last Vital Signs Date Time Temp Pulse Resp B/P (MAP) Pulse Ox O2 Delivery O2 Flow Rate FiO2 11/02/17 14:00 93/50 11/02/17 14:00 69 15 100 Room Air 11/02/17 12:00 98.0 11/02/17 07:01 21 Gastrointestinal: other Airway Exam Mallampati Score: Class II MO: limited Neck: supple TMD: 2fb ROM: limited Anesthesia Pre-op A/P Labs Hematology Test 11/01/17 19:15 11/02/17 04:25 White Blood Count 23.8 K/UL (4.8-10.8) *H 36.8 K/UL (4.8-10.8) #*H Red Blood Count 2.17 M/UL (4.20-5.40) L 2.28 M/UL (4.20-5.40) L Hemoglobin 7.8 G/DL (12.0-16.0) L 8.2 G/DL (12.0-16.0) L Hematocrit 23.7 % (37.0-47.0) L 25.3 % (37.0-47.0) L Mean Corpuscular Volume 109 FL (80-99) H 111 FL (80-99) H Mean Corpuscular Hemoglobin 35.7 PG (27.0-31.0) H 36.1 PG (27.0-31.0) H Mean Corpuscular Hemoglobin Concent 32.8 G/DL (32.0-36.0) 32.5 G/DL (32.0-36.0) Red Cell Distribution Width 13.4 % (11.6-14.8) 13.9 % (11.6-14.8) Platelet Count 190 K/UL (150-450) 292 K/UL (150-450) # Mean Platelet Volume 7.4 FL (6.5-10.1) 7.4 FL (6.5-10.1) Neutrophils (%) (Auto) % (45.0-75.0) % (45.0-75.0) Lymphocytes (%) (Auto) % (20.0-45.0) % (20.0-45.0) Monocytes (%) (Auto) % (1.0-10.0) % (1.0-10.0) Eosinophils (%) (Auto) % (0.0-3.0) % (0.0-3.0) Basophils (%) (Auto) % (0.0-2.0) % (0.0-2.0) Differential Total Cells Counted 100 100 Neutrophils % (Manual) 92 % (45-75) H 88 % (45-75) H Lymphocytes % (Manual) 1 % (20-45) L 4 % (20-45) L Monocytes % (Manual) 2 % (1-10) 5 % (1-10) Eosinophils % (Manual) 0 % (0-3) 0 % (0-3) Basophils % (Manual) 0 % (0-2) 0 % (0-2) Band Neutrophils 5 % (0-8) 3 % (0-8) Other Cell Type Pathologist comment Platelet Estimate Adequate Adequate Platelet Morphology Normal Normal Polychromasia 1+ Anisocytosis 1+ 1+ Macrocytosis 3+ 2+ Hypochromasia 2+ Coagulation Test 11/01/17 19:15 Prothrombin Time 12.3 SEC (9.30-11.50) H Prothromb Time International Ratio 1.2 (0.9-1.1) H Activated Partial Thromboplast Time 48 SEC (23-33) H Chemistry Test 11/01/17 19:15 11/02/17 04:25 Sodium Level 139 MMOL/L (136-145) 140 MMOL/L (136-145) Potassium Level 1.8 MMOL/L (3.5-5.1) *L 2.8 MMOL/L (3.5-5.1) #L Chloride Level 104 MMOL/L (98-107) 107 MMOL/L (98-107) Carbon Dioxide Level 21 MMOL/L (21-32) 18 MMOL/L (21-32) L Anion Gap 14 mmol/L (5-15) 16 mmol/L (5-15) H Blood Urea Nitrogen 38 mg/dL (7-18) H 34 mg/dL (7-18) H Creatinine 1.6 MG/DL (0.55-1.30) H 1.6 MG/DL (0.55-1.30) H Estimat Glomerular Filtration Rate mL/min (>60) mL/min (>60) Glucose Level 87 MG/DL (74-106) 113 MG/DL (74-106) H Lactic Acid Level 1.90 mmol/L (0.66-2.22) Calcium Level 8.1 MG/DL (8.5-10.1) L 7.7 MG/DL (8.5-10.1) L Total Bilirubin 20.5 MG/DL (0.2-1.0) H 22.1 MG/DL (0.2-1.0) H Direct Bilirubin 18.1 MG/DL (0.0-0.3) H 19.8 MG/DL (0.0-0.3) H Aspartate Amino Transf (AST/SGOT) 105 U/L (15-37) H 130 U/L (15-37) H Alanine Aminotransferase (ALT/SGPT) 79 U/L (12-78) H 93 U/L (12-78) H Alkaline Phosphatase 1010 U/L (46-116) H 1005 U/L (46-116) H Total Creatine Kinase 46 U/L (26-308) Creatine Kinase MB 5.9 NG/ML (0.0-3.6) H Creatine Kinase MB Relative Index 12.8 Troponin I 0.312 ng/mL (0.000-0.056) 1.528 ng/mL (0.000-0.056) Total Protein 5.2 G/DL (6.4-8.2) L 5.5 G/DL (6.4-8.2) L Albumin 1.4 G/DL (3.4-5.0) L 1.5 G/DL (3.4-5.0) L Globulin 3.8 g/dL 4.0 g/dL Albumin/Globulin Ratio 0.4 (1.0-2.7) L 0.4 (1.0-2.7) L Phosphorus Level 3.4 MG/DL (2.5-4.9) Magnesium Level 1.9 MG/DL (1.8-2.4) Risk Assessment & Plan Assessment: asa4 patient is on levophed infusion for cardiovascular support. reports having external procedure done at outside facility in the past. Plan: external procedure to be performed by radiologist. if unsuccessful, consider mac Status Change Before Surgery: No Pre-Antibiotics Drug: REINALDO Stevenson Nov 02, 2017 15:04
[2017-11-02] MEDS ORDERED: Lidocaine 1% Plain 30 ml INJ ONE (15:45)
[2017-11-02] MEDS ORDERED: Heparin 2000 units/Ns 1000ml INJ ONE (15:45)
--- NOTE | 2017-11-02 16:13 | Pre-Procedure Note/Attestation ---
Pre-Procedure Note/Attestation Complete Prior to Procedure Planned Procedure: not applicable Procedure Narrative: percutaneous cholangiogram, possible biliar drain exchange Indications for Procedure Pre-Operative Diagnosis: malfuncioing biliary drains, sepsis Attestation I attest that I discussed the nature of the procedure; its benefits; risks and complications; and alternatives (and the risks and benefits of such alternatives ), prior to the procedure, with the patient (or the patient's legal sales representative electric service). I attest that, if there was a reasonable possibility of needing a blood transfusion, the patient (or the patient's legal sales representative electric service) was given the [facility] standardized written summary, pursuant to the Christian Stevan Blood Safety Act ([place] Health and Safety Code # 1645, as amended). I attest that I re-evaluated the patient just prior to the surgery and that there has been no change in the patient's H&P, except as documented below: Kennedy Rowley M.D. Nov 02, 2017 16:13
--- NOTE | 2017-11-02 17:40 | Operative Note - PDOC ---
Operative Note Operative Note Date of Operation/Procedure: Nov 02, 2017 Chief Complaint: Malfunctioning biliary drains Pre-op Diagnosis: malfuncioing biliary drains, sepsis Procedure: cholangiogram via existing catheter, bliary drain exchange. Post-op Diagnosis: succesful exchange of right duct biliary drain Post-op Diagnosis: same as pre-op Surgeon: kennedy oreilly (IR) Anesthesia: local Specimen: none Estimated Blood Loss: none Drains: other Implant(s) used?: Yes Indications for Procedure malfunctioning biliary drain Description of Procedure Patient with 2 percutaneous biliary drains. The left drain was completely dislodged and outside of the patient (it was taped up to her skin), the right duct drain was in place. Attempted to try to gain access via the previous left duct tract - probed with a kumpe catehter and wire. This was ultimately not successful. The tract had completely closed. Injection via the right duct approach drain showed occlusion of the drain. The drain was exchanged over a wire for a new 8.5F biliary drain, with pigtail in the jejunum and sideholes in the right ducts. There is filling of the left duct system upon injection of the right duct drain. drain connected to gravity drainage bag. Not confident that all left sided ducts will be drained via the existing right-sided access. If LFts dont improve and sepsis doesnt resolve, would recommend CT of the abdomen to assess the ductal and post-surgical anatomy. She may indeed need a new left duct approach drain. Kennedy Oreilly M.D. Nov 02, 2017 17:40
[2017-11-02] MEDS: Meropenem 1 GM in NS 55 ML IVPB SCH (18:11)
--- NOTE | 2017-11-02 19:28 | Diagnostic Imaging Report ---
Indication: Sepsis, malfunctioning indwelling biliary drains. Technique: Patient referred for cholangiogram with possible biliary tube exchange. Of note, this exam revealed an the left biliary drain was totally removed and taped to the skin. Patient was placed supine on the angiography table and the abdomen prepped and draped in usual sterile fashion. A preprocedure timeout performed as per protocol. Attempts were made to cannulate the tract of the previous left duct approach percutaneous drainage catheter. Kumpe was advanced and used with injection of contrast and a Glidewire attempts to cannulate the tract. This was ultimately unsuccessful. Contrast was injected via the indwelling right duct approach drainage catheter and cholangiogram was obtained. The hub of the catheter was cut and a stiff shaft Glidewire was advanced over which a new 8.5 Greenlandic biliary drainage catheter was advanced. The Zanoni loop was formed and locked in the jejunum. Contrast is injected via the new tube, confirming appropriate positioning. Cholangiograms obtained via the new tube to delineate the biliary anatomy. Tube was secured the skin with 2-0 Ethilon and a sterile dressing was applied. Patient tolerated the procedure well, left department stable condition. Total fluoroscopy time 6.4 minutes. Total fluoroscopy dose 521 cGy-cm2. FINDINGS/IMPRESSION: Existing left duct approach percutaneous biliary drainage catheter was noted to be totally removed when patient arrived in IR. In fact, the catheter was just totally outside the patient, taped to the skin. Patient reports the catheter had been out for about a week. Attempts to cannulate the track of the previous left duct approach catheter unsuccessful. The tract had totally closed. Cholangiogram via indwelling catheter shows occlusion of the biliary drainage catheter with multiple sideholes outside of the biliary system. Successful replacement for a new 8.5 Greenlandic biliary drainage catheter. Patient status post hepaticojejunostomy. There is filling of right-sided duct via injection of the new catheter. There is also communication via a somewhat narrowed duct/channel to fill the the left ductal system.
[2017-11-03] VITALS (27 sets, daily range): BP systolic 94–129; BP diastolic 42–69
[2017-11-03] MEDS ORDERED: NS IV SCH (02:00)
[2017-11-03] MEDS ORDERED: AMIKACIN IV SCH (02:00)
[2017-11-03] MEDS: Meropenem 1 GM in NS 55 ML IVPB SCH ×2 (03:06→14:56)
[2017-11-03 05:58] LABS: MEAN CORPUSCULAR HGB CONC 32.6 G/DL (32.0-36.0); MEAN CORPUSCULAR VOLUME 110 FL (80-99); MEAN PLATELET VOLUME 6.8 FL (6.5-10.1); PLATELET COUNT 210 K/UL (150-450); RED BLOOD COUNT 2.03 M/UL (4.20-5.40); RED CELL DISTRIBUTION WIDTH 14.3 % (11.6-14.8)
[2017-11-03 06:26] LABS: HEMOGLOBIN A1C 5.1 % (4.3-6.0)
[2017-11-03 06:38] LABS: MAGNESIUM 1.8 MG/DL (1.8-2.4); PHOSPHORUS 4.2 MG/DL (2.5-4.9)
[2017-11-03 06:39] LABS: ALANINE AMINOTRANSFERASE 81 U/L (12-78); ALBUMIN/GLOBULIN RATIO 0.3 (1.0-2.7); ANION GAP 15 mmol/L (5-15); ASPARTATE AMINO TRANSFERASE 129 U/L (15-37); CALCIUM 7.8 MG/DL (8.5-10.1); CARBON DIOXIDE 15 MMOL/L (21-32); CHLORIDE 113 MMOL/L (98-107); CHOLESTEROL 155 MG/DL (< 200); CREATININE 2.1 MG/DL (0.55-1.30); POTASSIUM 3.2 MMOL/L (3.5-5.1); SODIUM 143 MMOL/L (136-145); THYROID STIMULATING HORMONE 0.195 uiU/mL (0.358-3.740); TOTAL PROTEIN 4.8 G/DL (6.4-8.2)
[2017-11-03 06:45] LABS: BILIRUBIN,DIRECT 17.1 MG/DL (0.0-0.3)
[2017-11-03] MEDS: Pantoprazole Inj IVP SCH (08:21)
[2017-11-03] MEDS: Heparin 5000 units/ml inj SUBQ SCH ×2 (08:24→20:59)
--- NOTE | 2017-11-03 08:47 | General Progress Note ---
Assessment/Plan Problem List: (1) Biliary drain displacement ICD Codes: T85.520A - Displacement of bile duct prosthesis, initial encounter SNOMED: 191274787 (2) Jaundice ICD Codes: R17 - Unspecified jaundice SNOMED: 58028162 (3) Gallbladder mass ICD Codes: K82.8 - Other specified diseases of gallbladder SNOMED: 563803235 (4) Abdominal pain ICD Codes: R10.9 - Unspecified abdominal pain SNOMED: 48756392 Assessment/Plan s/p external biliary drainage yesterday by radiology improving labs abx start diet getting blood today Subjective ROS Limited/Unobtainable: Yes Allergies: Coded Allergies: CODEINE (Verified Allergy, Unknown, 06/07/16) Subjective feeling weal Objective Last 24 Hour Vital Signs Date Time Temp Pulse Resp B/P (MAP) Pulse Ox O2 Delivery O2 Flow Rate FiO2 11/03/17 07:14 76 16 Room Air 21 11/03/17 07:00 73 15 96/46 100 Room Air 11/03/17 06:00 71 15 94/47 100 Room Air 11/03/17 05:00 72 17 103/46 100 Room Air 11/03/17 04:00 98.0 77 19 103/53 100 Room Air 11/03/17 04:00 78 11/03/17 03:00 78 21 97/44 100 Room Air 11/03/17 02:45 79 21 99/46 100 Room Air 11/03/17 02:30 81 20 109/42 100 Room Air 11/03/17 02:15 78 20 104/47 100 Room Air 11/03/17 02:00 78 20 103/44 100 Room Air 11/03/17 02:00 103/44 11/03/17 01:45 78 20 101/45 100 Room Air 11/03/17 01:30 75 20 113/51 100 Room Air 11/03/17 01:15 75 20 108/52 100 Room Air 11/03/17 01:00 75 20 115/52 100 Room Air 11/03/17 01:00 115/52 11/03/17 00:45 75 18 115/52 100 Room Air 11/03/17 00:30 74 18 121/53 100 Room Air 11/03/17 00:15 74 20 123/53 100 Room Air 11/03/17 00:00 74 11/03/17 00:00 125/53 11/03/17 00:00 97.9 74 19 125/53 100 Room Air 11/02/17 23:45 73 19 105/58 100 Room Air 11/02/17 23:30 73 18 116/51 100 Room Air 11/02/17 23:15 72 18 116/51 100 Room Air 11/02/17 23:00 114/55 11/02/17 23:00 71 18 121/53 100 Room Air 11/02/17 22:45 71 18 121/53 100 Room Air 11/02/17 22:30 68 18 124/54 100 Room Air 11/02/17 22:00 68 18 116/54 100 Room Air 11/02/17 22:00 124/54 11/02/17 21:30 73 18 123/52 100 Room Air 11/02/17 21:00 69 20 116/53 100 Room Air 11/02/17 21:00 116/54 11/02/17 20:30 68 20 111/53 100 Room Air 11/02/17 20:00 66 11/02/17 20:00 111/53 11/02/17 20:00 97.7 68 20 115/50 100 Room Air 11/02/17 19:30 65 18 118/51 100 Room Air 11/02/17 19:00 66 18 116/53 100 Room Air 11/02/17 18:41 65 16 Room Air 21 11/02/17 18:30 66 21 117/47 100 Room Air 11/02/17 18:11 104/49 11/02/17 18:00 98.0 70 17 86/36 100 Room Air 11/02/17 17:30 68 19 111/49 100 Room Air 11/02/17 16:55 67 18 118/60 100 Room Air 11/02/17 16:50 67 18 126/61 100 Room Air 11/02/17 16:45 64 18 133/58 100 Room Air 11/02/17 16:40 62 18 130/56 100 Room Air 11/02/17 16:35 68 18 124/62 100 Room Air 11/02/17 16:30 69 18 128/62 100 Room Air 11/02/17 16:25 65 18 115/56 100 Room Air 11/02/17 16:20 68 18 127/61 100 Room Air 11/02/17 16:02 68 22 11/02/17 15:00 68 18 108/50 100 Room Air 11/02/17 15:00 108/50 11/02/17 15:00 108/50 11/02/17 14:30 68 18 93/50 100 Room Air 11/02/17 14:00 93/50 11/02/17 14:00 69 15 103/57 100 Room Air 11/02/17 13:30 67 17 100/48 100 Room Air 11/02/17 13:00 65 17 103/48 100 Room Air 11/02/17 13:00 103/48 11/02/17 12:31 65 11/02/17 12:30 64 15 90/37 100 Room Air 11/02/17 12:00 98.0 66 18 103/51 100 Room Air 11/02/17 12:00 103/51 11/02/17 11:30 65 18 108/48 100 Room Air 11/02/17 11:00 66 19 98/50 100 Room Air 11/02/17 11:00 97/46 11/02/17 10:30 65 11 97/46 100 Room Air 11/02/17 10:00 113/53 11/02/17 10:00 67 16 113/53 100 Room Air 11/02/17 09:30 64 17 105/51 100 Room Air 11/02/17 09:15 116/50 11/02/17 09:00 63 18 116/50 100 Room Air Laboratory Tests 11/02/17 09:25: Arterial Blood pH 7.357, Arterial Blood Partial Pressure CO2 27.1L, Arterial Blood Partial Pressure O2 95.6, Arterial Blood HCO3 14.9L, Arterial Blood Oxygen Saturation 96.3, Arterial Blood Base Excess -9.5, Chet Test Positive 11/03/17 05:00: White Blood Count 19.0H, Red Blood Count 2.03L, Hemoglobin 7.3L, Hematocrit 22.5L, Mean Corpuscular Volume 110H, Mean Corpuscular Hemoglobin 36.0H, Mean Corpuscular Hemoglobin Concent 32.6, Red Cell Distribution Width 14.3, Platelet Count 210, Mean Platelet Volume 6.8, Neutrophils (%) (Auto) , Lymphocytes (%) ( Auto) , Monocytes (%) (Auto) , Eosinophils (%) (Auto) , Basophils (%) (Auto) , Neutrophils % (Manual) [Pending], Lymphocytes % (Manual) [Pending], Platelet Estimate [Pending], Platelet Morphology [Pending], Sodium Level 143, Potassium Level 3.2L, Chloride Level 113H, Carbon Dioxide Level 15L, Anion Gap 15, Blood Urea Nitrogen 43H, Creatinine 2.1H, Estimat Glomerular Filtration Rate , Glucose Level 65L, Hemoglobin A1c 5.1, Uric Acid 5.0, Calcium Level 7.8L, Phosphorus Level 4.2, Magnesium Level 1.8, Total Bilirubin 18.8H, Direct Bilirubin 17.1H, Gamma Glutamyl Transpeptidase 568H, Aspartate Amino Transf (AST /SGOT) 129H, Alanine Aminotransferase (ALT/SGPT) 81H, Alkaline Phosphatase 1226H , Ammonia 45H, C-Reactive Protein, Quantitative 18.0H, Pro-B-Type Natriuretic Peptide 13292D, Total Protein 4.8L, Albumin 1.2L, Globulin 3.6, Albumin/ Globulin Ratio 0.3L, Triglycerides Level 176H, Cholesterol Level 155, LDL Cholesterol 163H, HDL Cholesterol 5L, Cholesterol/HDL Ratio 31.0H, Thyroid Stimulating Hormone (TSH) 0.195L, Random Vancomycin Level 10.1 Height (Feet): 5 Height (Inches): 2.00 Weight (Pounds): 110 General Appearance: no apparent distress EENT: normal ENT inspection Neck: supple Cardiovascular: normal rate Respiratory/Chest: decreased breath sounds Abdomen: normal bowel sounds, non tender, soft Extremities: non-tender ERNESTO RAMIRES Nov 03, 2017 08:47
--- NOTE | 2017-11-03 08:50 | Infectious Diseases Prog Note ---
Assessment/Plan Assessment/Plan Abx: IV Vancomycin 11/02- IV Amikacin 11/02- Ertapenem 11/02 Flagyl x1 01/02 Assessment: Septic shock- likely due to cholangitis- r/o bacteremia -CXR no acute disease -u/a, sp, bcx p Cholangitis 2ry to obstructed biliary drain s/p IR Cholangiogram with placement of new drainage -IR Cholangio: Patient with 2 percutaneous biliary drains. The left drain was completely dislodged and outside of the patient (it was taped up to her skin ), the right duct drain was in place. The tract had completely closed. Injection via the right duct approach drain showed occlusion of the drain. The drain was exchanged over a wire for a new 8.5F biliary drain, with pigtail in the jejunum and sideholes in the right ducts. There is filling of the left duct system upon injection of the right duct drain. drain connected to gravity drainage bag. Not confident that all left sided ducts will be drained via the existing right-sided access. If LFts dont improve and sepsis doesnt resolve, would recommend CT of the abdomen to assess the ductal and post-surgical anatomy. She may indeed need a new left duct approach drain. Leukocytosis-improving Cholestatic>hepatotoxic liver injury- 2ry to obstructive pancreatic mass/ cholangitis; improving CELSA, worsening pancreatic CA, GB mass s/p pigtail catheter x2 HTN, GERD Plan: -Continue IV Vanco and Meropenem #2 and d/c Amikacin #2 (now sepsis improving after source control) pending cultures -11/02 SP Ertapenem #1 -f/u cx -Monitor CBC/BMP, temperatures Thank you for this consultation. Will continue to follow along with you. Discussed with RN. Subjective Allergies: Coded Allergies: CODEINE (Verified Allergy, Unknown, 06/07/16) Subjective afebrile leukocytosis improving s/p replacement biliary drain levophed going down Objective Vital Signs Last 24 Hour Vital Signs Date Time Temp Pulse Resp B/P (MAP) Pulse Ox O2 Delivery O2 Flow Rate FiO2 11/03/17 07:14 76 16 Room Air 21 11/03/17 07:00 73 15 96/46 100 Room Air 11/03/17 06:00 71 15 94/47 100 Room Air 11/03/17 05:00 72 17 103/46 100 Room Air 11/03/17 04:00 98.0 77 19 103/53 100 Room Air 11/03/17 04:00 78 11/03/17 03:00 78 21 97/44 100 Room Air 11/03/17 02:45 79 21 99/46 100 Room Air 11/03/17 02:30 81 20 109/42 100 Room Air 11/03/17 02:15 78 20 104/47 100 Room Air 11/03/17 02:00 78 20 103/44 100 Room Air 11/03/17 02:00 103/44 11/03/17 01:45 78 20 101/45 100 Room Air 11/03/17 01:30 75 20 113/51 100 Room Air 11/03/17 01:15 75 20 108/52 100 Room Air 11/03/17 01:00 75 20 115/52 100 Room Air 11/03/17 01:00 115/52 11/03/17 00:45 75 18 115/52 100 Room Air 11/03/17 00:30 74 18 121/53 100 Room Air 11/03/17 00:15 74 20 123/53 100 Room Air 11/03/17 00:00 74 11/03/17 00:00 125/53 11/03/17 00:00 97.9 74 19 125/53 100 Room Air 11/02/17 23:45 73 19 105/58 100 Room Air 11/02/17 23:30 73 18 116/51 100 Room Air 11/02/17 23:15 72 18 116/51 100 Room Air 11/02/17 23:00 114/55 11/02/17 23:00 71 18 121/53 100 Room Air 11/02/17 22:45 71 18 121/53 100 Room Air 11/02/17 22:30 68 18 124/54 100 Room Air 11/02/17 22:00 68 18 116/54 100 Room Air 11/02/17 22:00 124/54 11/02/17 21:30 73 18 123/52 100 Room Air 11/02/17 21:00 69 20 116/53 100 Room Air 11/02/17 21:00 116/54 11/02/17 20:30 68 20 111/53 100 Room Air 11/02/17 20:00 66 11/02/17 20:00 111/53 11/02/17 20:00 97.7 68 20 115/50 100 Room Air 11/02/17 19:30 65 18 118/51 100 Room Air 11/02/17 19:00 66 18 116/53 100 Room Air 11/02/17 18:41 65 16 Room Air 21 11/02/17 18:30 66 21 117/47 100 Room Air 11/02/17 18:11 104/49 11/02/17 18:00 98.0 70 17 86/36 100 Room Air 11/02/17 17:30 68 19 111/49 100 Room Air 11/02/17 16:55 67 18 118/60 100 Room Air 11/02/17 16:50 67 18 126/61 100 Room Air 11/02/17 16:45 64 18 133/58 100 Room Air 11/02/17 16:40 62 18 130/56 100 Room Air 11/02/17 16:35 68 18 124/62 100 Room Air 11/02/17 16:30 69 18 128/62 100 Room Air 11/02/17 16:25 65 18 115/56 100 Room Air 11/02/17 16:20 68 18 127/61 100 Room Air 11/02/17 16:02 68 22 11/02/17 15:00 68 18 108/50 100 Room Air 11/02/17 15:00 108/50 11/02/17 15:00 108/50 11/02/17 14:30 68 18 93/50 100 Room Air 11/02/17 14:00 93/50 11/02/17 14:00 69 15 103/57 100 Room Air 11/02/17 13:30 67 17 100/48 100 Room Air 11/02/17 13:00 65 17 103/48 100 Room Air 11/02/17 13:00 103/48 11/02/17 12:31 65 11/02/17 12:30 64 15 90/37 100 Room Air 11/02/17 12:00 98.0 66 18 103/51 100 Room Air 11/02/17 12:00 103/51 11/02/17 11:30 65 18 108/48 100 Room Air 11/02/17 11:00 66 19 98/50 100 Room Air 11/02/17 11:00 97/46 11/02/17 10:30 65 11 97/46 100 Room Air 11/02/17 10:00 113/53 11/02/17 10:00 67 16 113/53 100 Room Air 11/02/17 09:30 64 17 105/51 100 Room Air 11/02/17 09:15 116/50 11/02/17 09:00 63 18 116/50 100 Room Air Height (Feet): 5 Height (Inches): 2.00 Weight (Pounds): 110 Objective General Appearance: no apparent distress EENT: normal ENT inspection Neck: supple Cardiovascular: normal rate Respiratory/Chest: decreased breath sounds Abdomen: normal bowel sounds, non tender, soft Extremities: non-tender Laboratory Tests Test 11/02/17 09:25 11/03/17 05:00 Arterial Blood pH 7.357 (7.350-7.450) Arterial Blood Partial Pressure CO2 27.1 mmHg (35.0-45.0) L Arterial Blood Partial Pressure O2 95.6 mmHg (75.0-100.0) Arterial Blood HCO3 14.9 mmol/L (22.0-26.0) L Arterial Blood Oxygen Saturation 96.3 % (92.0-98.0) Arterial Blood Base Excess -9.5 Chet Test Positive White Blood Count 19.0 K/UL (4.8-10.8) H Red Blood Count 2.03 M/UL (4.20-5.40) L Hemoglobin 7.3 G/DL (12.0-16.0) L Hematocrit 22.5 % (37.0-47.0) L Mean Corpuscular Volume 110 FL (80-99) H Mean Corpuscular Hemoglobin 36.0 PG (27.0-31.0) H Mean Corpuscular Hemoglobin Concent 32.6 G/DL (32.0-36.0) Red Cell Distribution Width 14.3 % (11.6-14.8) Platelet Count 210 K/UL (150-450) Mean Platelet Volume 6.8 FL (6.5-10.1) Neutrophils (%) (Auto) % (45.0-75.0) Lymphocytes (%) (Auto) % (20.0-45.0) Monocytes (%) (Auto) % (1.0-10.0) Eosinophils (%) (Auto) % (0.0-3.0) Basophils (%) (Auto) % (0.0-2.0) Neutrophils % (Manual) Pending Lymphocytes % (Manual) Pending Platelet Estimate Pending Platelet Morphology Pending Sodium Level 143 MMOL/L (136-145) Potassium Level 3.2 MMOL/L (3.5-5.1) L Chloride Level 113 MMOL/L (98-107) H Carbon Dioxide Level 15 MMOL/L (21-32) L Anion Gap 15 mmol/L (5-15) Blood Urea Nitrogen 43 mg/dL (7-18) H Creatinine 2.1 MG/DL (0.55-1.30) H Estimat Glomerular Filtration Rate mL/min (>60) Glucose Level 65 MG/DL (74-106) L Hemoglobin A1c 5.1 % (4.3-6.0) Uric Acid 5.0 MG/DL (2.6-7.2) Calcium Level 7.8 MG/DL (8.5-10.1) L Phosphorus Level 4.2 MG/DL (2.5-4.9) Magnesium Level 1.8 MG/DL (1.8-2.4) Total Bilirubin 18.8 MG/DL (0.2-1.0) H Direct Bilirubin 17.1 MG/DL (0.0-0.3) H Gamma Glutamyl Transpeptidase 568 U/L (5-85) H Aspartate Amino Transf (AST/SGOT) 129 U/L (15-37) H Alanine Aminotransferase (ALT/SGPT) 81 U/L (12-78) H Alkaline Phosphatase 1226 U/L (46-116) H Ammonia 45 umol/L (11-32) H C-Reactive Protein, Quantitative 18.0 mg/dL (0.00-0.90) H Pro-B-Type Natriuretic Peptide 16850 pg/mL (0-125) H Total Protein 4.8 G/DL (6.4-8.2) L Albumin 1.2 G/DL (3.4-5.0) L Globulin 3.6 g/dL Albumin/Globulin Ratio 0.3 (1.0-2.7) L Triglycerides Level 176 MG/DL (30-150) H Cholesterol Level 155 MG/DL (< 200) LDL Cholesterol 163 mg/dL (<100) H HDL Cholesterol 5 MG/DL (40-60) L Cholesterol/HDL Ratio 31.0 (3.3-4.4) H Thyroid Stimulating Hormone (TSH) 0.195 uiU/mL (0.358-3.740) Random Vancomycin Level 10.1 ug/mL Current Medications Medications (Trade) Dose Ordered Sig/Yvonne Route PRN Reason Start Time Stop Time Status Last Admin Dose Admin Acetaminophen (Tylenol) 650 mg Q4H PRN ORAL fever 11/01/17 22:15 12/01/17 22:14 Albuterol/ Ipratropium (Albuterol/ Ipratropium) 3 ml EVERY 4 HOURS PRN HHN Shortness of Breath 11/01/17 22:15 11/06/17 22:14 Amikacin Sulfate 300 mg/Sodium Chloride 56.2 ml @ 110 mls/hr Q24H IV 11/03/17 02:00 11/10/17 01:59 11/03/17 01:49 Heparin Sodium (Porcine) (Heparin 5000 units/ml) 5,000 units EVERY 12 HOURS SUBQ 11/02/17 09:00 12/02/17 08:59 11/03/17 08:24 Meropenem 1 gm/ Sodium Chloride 55 ml @ 110 mls/hr Q12H IVPB 11/02/17 15:00 11/07/17 14:59 11/03/17 03:06 Norepinephrine Bitartrate 4 mg/ Dextrose 254 ml @ 0 mls/hr Q24H IV 11/01/17 22:15 12/01/17 22:14 11/02/17 18:11 Ondansetron HCl (Zofran) 4 mg Q6H PRN IVP Nausea & Vomiting 11/01/17 22:15 12/01/17 22:14 Pantoprazole (Protonix) 40 mg DAILY IVP 11/02/17 09:00 12/02/17 08:59 11/03/17 08:21 Polyethylene Glycol (Miralax) 17 gm DAILYPRN PRN ORAL Constipation 11/01/17 22:15 12/01/17 22:14 Sodium Chloride 1,000 ml @ 100 mls/hr Q10H IVLG 11/01/17 22:12 12/01/17 22:11 11/03/17 08:20 Vancomycin HCl (Vanco rx to dose) 1 ea DAILY PRN MISC . 11/02/17 09:45 12/02/17 09:44 Vancomycin HCl 1 gm/Dextrose 275 ml @ 183.708 mls/hr ONCE ONCE IVPB 11/03/17 09:00 11/03/17 10:29 11/03/17 08:21 Venus Tapia M.D. Nov 03, 2017 08:50
--- NOTE | 2017-11-03 08:53 | Nephrology Progress Note ---
Assessment/Plan Problem List: (1) Acute renal failure (ARF) (2) Pancreas cancer (3) Jaundice Assessment Renal failure, Multifactorial: Cancer, Low Aklbumin , Liver failure , Sepsis Other: (1) Protein-calorie malnutrition, severe (2) Severe sepsis (3) Jaundice (4) Biliary drain displacement (5) Pancreas cancer (6) Rising troponin Plan Plan: now DNR DNI Correct electrolytes- Monitor renal parameters antibiotics Avoid nephrotoxics prognosis poor no dialysis in view of underlying neoplastic process Subjective ROS Limited/Unobtainable: No Constitutional: Reports: malaise, weakness Objective Objective Last 24 Hour Vital Signs Date Time Temp Pulse Resp B/P (MAP) Pulse Ox O2 Delivery O2 Flow Rate FiO2 11/03/17 07:14 76 16 Room Air 21 11/03/17 07:00 73 15 96/46 100 Room Air 11/03/17 06:00 71 15 94/47 100 Room Air 11/03/17 05:00 72 17 103/46 100 Room Air 11/03/17 04:00 98.0 77 19 103/53 100 Room Air 11/03/17 04:00 78 11/03/17 03:00 78 21 97/44 100 Room Air 11/03/17 02:45 79 21 99/46 100 Room Air 11/03/17 02:30 81 20 109/42 100 Room Air 11/03/17 02:15 78 20 104/47 100 Room Air 11/03/17 02:00 78 20 103/44 100 Room Air 11/03/17 02:00 103/44 11/03/17 01:45 78 20 101/45 100 Room Air 11/03/17 01:30 75 20 113/51 100 Room Air 11/03/17 01:15 75 20 108/52 100 Room Air 11/03/17 01:00 75 20 115/52 100 Room Air 11/03/17 01:00 115/52 11/03/17 00:45 75 18 115/52 100 Room Air 11/03/17 00:30 74 18 121/53 100 Room Air 11/03/17 00:15 74 20 123/53 100 Room Air 11/03/17 00:00 74 11/03/17 00:00 125/53 11/03/17 00:00 97.9 74 19 125/53 100 Room Air 11/02/17 23:45 73 19 105/58 100 Room Air 11/02/17 23:30 73 18 116/51 100 Room Air 11/02/17 23:15 72 18 116/51 100 Room Air 11/02/17 23:00 114/55 11/02/17 23:00 71 18 121/53 100 Room Air 11/02/17 22:45 71 18 121/53 100 Room Air 11/02/17 22:30 68 18 124/54 100 Room Air 11/02/17 22:00 68 18 116/54 100 Room Air 11/02/17 22:00 124/54 11/02/17 21:30 73 18 123/52 100 Room Air 11/02/17 21:00 69 20 116/53 100 Room Air 11/02/17 21:00 116/54 11/02/17 20:30 68 20 111/53 100 Room Air 11/02/17 20:00 66 11/02/17 20:00 111/53 11/02/17 20:00 97.7 68 20 115/50 100 Room Air 11/02/17 19:30 65 18 118/51 100 Room Air 11/02/17 19:00 66 18 116/53 100 Room Air 11/02/17 18:41 65 16 Room Air 11/02/17 18:30 66 21 117/47 100 Room Air 11/02/17 18:11 104/49 11/02/17 18:00 98.0 70 17 86/36 100 Room Air 11/02/17 17:30 68 19 111/49 100 Room Air 11/02/17 16:55 67 18 118/60 100 Room Air 11/02/17 16:50 67 18 126/61 100 Room Air 11/02/17 16:45 64 18 133/58 100 Room Air 11/02/17 16:40 62 18 130/56 100 Room Air 11/02/17 16:35 68 18 124/62 100 Room Air 11/02/17 16:30 69 18 128/62 100 Room Air 11/02/17 16:25 65 18 115/56 100 Room Air 11/02/17 16:20 68 18 127/61 100 Room Air 11/02/17 16:02 68 22 11/02/17 15:00 68 18 108/50 100 Room Air 11/02/17 15:00 108/50 11/02/17 15:00 108/50 11/02/17 14:30 68 18 93/50 100 Room Air 11/02/17 14:00 93/50 11/02/17 14:00 69 15 103/57 100 Room Air 11/02/17 13:30 67 17 100/48 100 Room Air 11/02/17 13:00 65 17 103/48 100 Room Air 11/02/17 13:00 103/48 11/02/17 12:31 65 11/02/17 12:30 64 15 90/37 100 Room Air 11/02/17 12:00 98.0 66 18 103/51 100 Room Air 11/02/17 12:00 103/51 11/02/17 11:30 65 18 108/48 100 Room Air 11/02/17 11:00 66 19 98/50 100 Room Air 11/02/17 11:00 97/46 11/02/17 10:30 65 11 97/46 100 Room Air 11/02/17 10:00 113/53 11/02/17 10:00 67 16 113/53 100 Room Air 11/02/17 09:30 64 17 105/51 100 Room Air 11/02/17 09:15 116/50 11/02/17 09:00 63 18 116/50 100 Room Air Laboratory Tests 11/02/17 09:25: Arterial Blood pH 7.357, Arterial Blood Partial Pressure CO2 27.1L, Arterial Blood Partial Pressure O2 95.6, Arterial Blood HCO3 14.9L, Arterial Blood Oxygen Saturation 96.3, Arterial Blood Base Excess -9.5, Chet Test Positive 11/03/17 05:00: White Blood Count 19.0H, Red Blood Count 2.03L, Hemoglobin 7.3L, Hematocrit 22.5L, Mean Corpuscular Volume 110H, Mean Corpuscular Hemoglobin 36.0H, Mean Corpuscular Hemoglobin Concent 32.6, Red Cell Distribution Width 14.3, Platelet Count 210, Mean Platelet Volume 6.8, Neutrophils (%) (Auto) , Lymphocytes (%) ( Auto) , Monocytes (%) (Auto) , Eosinophils (%) (Auto) , Basophils (%) (Auto) , Neutrophils % (Manual) [Pending], Lymphocytes % (Manual) [Pending], Platelet Estimate [Pending], Platelet Morphology [Pending], Sodium Level 143, Potassium Level 3.2L, Chloride Level 113H, Carbon Dioxide Level 15L, Anion Gap 15, Blood Urea Nitrogen 43H, Creatinine 2.1H, Estimat Glomerular Filtration Rate , Glucose Level 65L, Hemoglobin A1c 5.1, Uric Acid 5.0, Calcium Level 7.8L, Phosphorus Level 4.2, Magnesium Level 1.8, Total Bilirubin 18.8H, Direct Bilirubin 17.1H, Gamma Glutamyl Transpeptidase 568H, Aspartate Amino Transf (AST /SGOT) 129H, Alanine Aminotransferase (ALT/SGPT) 81H, Alkaline Phosphatase 1226H , Ammonia 45H, C-Reactive Protein, Quantitative 18.0H, Pro-B-Type Natriuretic Peptide 01641N, Total Protein 4.8L, Albumin 1.2L, Globulin 3.6, Albumin/ Globulin Ratio 0.3L, Triglycerides Level 176H, Cholesterol Level 155, LDL Cholesterol 163H, HDL Cholesterol 5L, Cholesterol/HDL Ratio 31.0H, Thyroid Stimulating Hormone (TSH) 0.195L, Random Vancomycin Level 10.1 Height (Feet): 5 Height (Inches): 2.00 Weight (Pounds): 110 General Appearance: no apparent distress, other - jaundiced Cardiovascular: tachycardia Respiratory/Chest: decreased breath sounds Abdomen: distended LINUS ZUÑIGA Nov 03, 2017 08:53
[2017-11-03] MEDS ORDERED: Vancomycin 1gm/D5W 275ml IVPB ONE ×2 (09:00)
[2017-11-03 10:24] LABS: ANISOCYTOSIS 1+; BAND NEUTROPHILS % (MANUAL) 0 % (0-8); BASOPHILS % (MANUAL) 0 % (0-2); EOSINOPHILS % (MANUAL) 0 % (0-3); HYPOCHROMASIA 3+; LYMPHOCYTES % (MANUAL) 3 % (20-45); MACROCYTES 1+; NEUTROPHILS % (MANUAL) 92 % (45-75); PLATELET ESTIMATE ADEQUATE; PLATELET MORPHOLOGY NORMAL; TOTAL CELLS COUNTED 100
--- NOTE | 2017-11-03 11:15 | Pulmonolgy Critical Care Note ---
Critical Care - Asmt/Plan Problems: (1) Severe sepsis (2) Acute renal failure (ARF) (3) Biliary drain displacement (4) Hyperbilirubinemia (5) Jaundice Respiratory: monitor respiratory rate, adjust FIO2 Cardiac: continue to monitor HR/BP Renal: F/U I&O, keep IV fluid Infectious Disease: check cultures Gastrointestinal: continue feedings/current rate Endocrine: check TSH Hematologic: monitor H/H Neurologic: PRN Morphine Affect: PRN ativan Prophylaxis: Protonix Discussed with: nurses, consultants Critical Care - Objective Last 24 Hour Vital Signs Date Time Temp Pulse Resp B/P (MAP) Pulse Ox O2 Delivery O2 Flow Rate FiO2 11/03/17 10:00 98.0 11/03/17 10:00 70 24 115/55 100 Room Air 11/03/17 09:00 72 18 109/54 100 Room Air 11/03/17 08:00 98.1 74 18 103/52 100 Room Air 11/03/17 08:00 71 11/03/17 07:14 76 16 Room Air 21 11/03/17 07:00 73 15 96/46 100 Room Air 11/03/17 06:00 71 15 94/47 100 Room Air 11/03/17 05:00 72 17 103/46 100 Room Air 11/03/17 04:00 98.0 77 19 103/53 100 Room Air 11/03/17 04:00 78 11/03/17 03:00 78 21 97/44 100 Room Air 11/03/17 02:45 79 21 99/46 100 Room Air 11/03/17 02:30 81 20 109/42 100 Room Air 11/03/17 02:15 78 20 104/47 100 Room Air 11/03/17 02:00 78 20 103/44 100 Room Air 11/03/17 02:00 103/44 11/03/17 01:45 78 20 101/45 100 Room Air 11/03/17 01:30 75 20 113/51 100 Room Air 11/03/17 01:15 75 20 108/52 100 Room Air 11/03/17 01:00 75 20 115/52 100 Room Air 11/03/17 01:00 115/52 11/03/17 00:45 75 18 115/52 100 Room Air 11/03/17 00:30 74 18 121/53 100 Room Air 11/03/17 00:15 74 20 123/53 100 Room Air 11/03/17 00:00 74 11/03/17 00:00 125/53 11/03/17 00:00 97.9 74 19 125/53 100 Room Air 11/02/17 23:45 73 19 105/58 100 Room Air 11/02/17 23:30 73 18 116/51 100 Room Air 11/02/17 23:15 72 18 116/51 100 Room Air 11/02/17 23:00 114/55 11/02/17 23:00 71 18 121/53 100 Room Air 11/02/17 22:45 71 18 121/53 100 Room Air 11/02/17 22:30 68 18 124/54 100 Room Air 11/02/17 22:00 68 18 116/54 100 Room Air 11/02/17 22:00 124/54 11/02/17 21:30 73 18 123/52 100 Room Air 11/02/17 21:00 69 20 116/53 100 Room Air 11/02/17 21:00 116/54 11/02/17 20:30 68 20 111/53 100 Room Air 11/02/17 20:00 66 11/02/17 20:00 111/53 11/02/17 20:00 97.7 68 20 115/50 100 Room Air 11/02/17 19:30 65 18 118/51 100 Room Air 11/02/17 19:00 66 18 116/53 100 Room Air 11/02/17 18:41 65 16 Room Air 21 11/02/17 18:30 66 21 117/47 100 Room Air 11/02/17 18:11 104/49 11/02/17 18:00 98.0 70 17 86/36 100 Room Air 11/02/17 17:30 68 19 111/49 100 Room Air 11/02/17 16:55 67 18 118/60 100 Room Air 11/02/17 16:50 67 18 126/61 100 Room Air 11/02/17 16:45 64 18 133/58 100 Room Air 11/02/17 16:40 62 18 130/56 100 Room Air 11/02/17 16:35 68 18 124/62 100 Room Air 11/02/17 16:30 69 18 128/62 100 Room Air 11/02/17 16:25 65 18 115/56 100 Room Air 11/02/17 16:20 68 18 127/61 100 Room Air 11/02/17 16:02 68 22 11/02/17 15:00 68 18 108/50 100 Room Air 11/02/17 15:00 108/50 11/02/17 15:00 108/50 11/02/17 14:30 68 18 93/50 100 Room Air 11/02/17 14:00 93/50 11/02/17 14:00 69 15 103/57 100 Room Air 11/02/17 13:30 67 17 100/48 100 Room Air 11/02/17 13:00 65 17 103/48 100 Room Air 11/02/17 13:00 103/48 11/02/17 12:31 65 11/02/17 12:30 64 15 90/37 100 Room Air 11/02/17 12:00 98.0 66 18 103/51 100 Room Air 11/02/17 12:00 103/51 11/02/17 11:30 65 18 108/48 100 Room Air Status: sedated Condition: critical HEENT: atraumatic Neck: full ROM Lungs: clear Heart: HR/BP stable Abdomen: soft, non-tender Extremities: edema Decubiti: location Critical Care - Subjective ROS Limited/Unobtainable: Yes - 2 ICU Day: 2 Interval Events: getting blood, refusing ERCP FI02: 21 Sputum Amount: None I&O: Intake and Output 11/03/17 11/04/17 19:00 07:00 Intake Total 240 ml Output Total 0 ml Balance 240 ml Other 240 ml Output Urine Total 0 ml Labs: Laboratory Tests Test 11/03/17 05:00 White Blood Count 19.0 K/UL (4.8-10.8) H Red Blood Count 2.03 M/UL (4.20-5.40) L Hemoglobin 7.3 G/DL (12.0-16.0) L Hematocrit 22.5 % (37.0-47.0) L Mean Corpuscular Volume 110 FL (80-99) H Mean Corpuscular Hemoglobin 36.0 PG (27.0-31.0) H Mean Corpuscular Hemoglobin Concent 32.6 G/DL (32.0-36.0) Red Cell Distribution Width 14.3 % (11.6-14.8) Platelet Count 210 K/UL (150-450) Mean Platelet Volume 6.8 FL (6.5-10.1) Neutrophils (%) (Auto) % (45.0-75.0) Lymphocytes (%) (Auto) % (20.0-45.0) Monocytes (%) (Auto) % (1.0-10.0) Eosinophils (%) (Auto) % (0.0-3.0) Basophils (%) (Auto) % (0.0-2.0) Differential Total Cells Counted 100 Neutrophils % (Manual) 92 % (45-75) H Lymphocytes % (Manual) 3 % (20-45) L Monocytes % (Manual) 5 % (1-10) Eosinophils % (Manual) 0 % (0-3) Basophils % (Manual) 0 % (0-2) Band Neutrophils 0 % (0-8) Platelet Estimate Adequate Platelet Morphology Normal Hypochromasia 3+ Anisocytosis 1+ Macrocytosis 1+ Sodium Level 143 MMOL/L (136-145) Potassium Level 3.2 MMOL/L (3.5-5.1) L Chloride Level 113 MMOL/L (98-107) H Carbon Dioxide Level 15 MMOL/L (21-32) L Anion Gap 15 mmol/L (5-15) Blood Urea Nitrogen 43 mg/dL (7-18) H Creatinine 2.1 MG/DL (0.55-1.30) H Estimat Glomerular Filtration Rate mL/min (>60) Glucose Level 65 MG/DL (74-106) L Hemoglobin A1c 5.1 % (4.3-6.0) Uric Acid 5.0 MG/DL (2.6-7.2) Calcium Level 7.8 MG/DL (8.5-10.1) L Phosphorus Level 4.2 MG/DL (2.5-4.9) Magnesium Level 1.8 MG/DL (1.8-2.4) Total Bilirubin 18.8 MG/DL (0.2-1.0) H Direct Bilirubin 17.1 MG/DL (0.0-0.3) H Gamma Glutamyl Transpeptidase 568 U/L (5-85) H Aspartate Amino Transf (AST/SGOT) 129 U/L (15-37) H Alanine Aminotransferase (ALT/SGPT) 81 U/L (12-78) H Alkaline Phosphatase 1226 U/L (46-116) H Ammonia 45 umol/L (11-32) H C-Reactive Protein, Quantitative 18.0 mg/dL (0.00-0.90) H Pro-B-Type Natriuretic Peptide 61069 pg/mL (0-125) H Total Protein 4.8 G/DL (6.4-8.2) L Albumin 1.2 G/DL (3.4-5.0) L Globulin 3.6 g/dL Albumin/Globulin Ratio 0.3 (1.0-2.7) L Triglycerides Level 176 MG/DL (30-150) H Cholesterol Level 155 MG/DL (< 200) LDL Cholesterol 163 mg/dL (<100) H HDL Cholesterol 5 MG/DL (40-60) L Cholesterol/HDL Ratio 31.0 (3.3-4.4) H Thyroid Stimulating Hormone (TSH) 0.195 uiU/mL (0.358-3.740) Random Vancomycin Level 10.1 ug/mL PHILIP SALEEM Nov 03, 2017 11:15
[2017-11-03] MEDS ORDERED: Albuterol/Ipratropium 3ml neb HHN PRN (17:00)
[2017-11-03] MEDS ORDERED: D5W 275ml ONE ×2 (17:21→17:22)
[2017-11-03] MEDS ORDERED: NS 500ML ONE ×2 (17:21→17:22)
[2017-11-03] MEDS ORDERED: Tubing IV Secondary IV ONE ×2 (17:21→17:22)
[2017-11-03] MEDS ORDERED: Tubing Blood Filter IV ONE (17:25)
[2017-11-03] MEDS: Dyna-Hex 2% Top Sol 2oz TOPIC SCH (20:59)
[2017-11-03] MEDS ORDERED: Miralax 17gm pkt ORAL PRN (22:15)
[2017-11-04] VITALS: BP 106/64
[2017-11-04] MEDS: Meropenem 1 GM in NS 55 ML IVPB SCH ×2 (02:17→15:28)
[2017-11-04 04:00] VITALS: BP 103/61
--- NOTE | 2017-11-04 06:51 | General Progress Note ---
Assessment/Plan Problem List: (1) Biliary drain displacement ICD Codes: T85.520A - Displacement of bile duct prosthesis, initial encounter SNOMED: 056656196 (2) Jaundice ICD Codes: R17 - Unspecified jaundice SNOMED: 93577541 (3) Gallbladder mass ICD Codes: K82.8 - Other specified diseases of gallbladder SNOMED: 632165901 (4) Abdominal pain ICD Codes: R10.9 - Unspecified abdominal pain SNOMED: 65330342 Assessment/Plan s/p external biliary drainage by radiology improving labs abx on diet s/p blood transfusion fu labs Subjective ROS Limited/Unobtainable: Yes Allergies: Coded Allergies: CODEINE (Verified Allergy, Unknown, 06/07/16) Subjective feeling better Objective Last 24 Hour Vital Signs Date Time Temp Pulse Resp B/P (MAP) Pulse Ox O2 Delivery O2 Flow Rate FiO2 11/04/17 04:00 97.7 72 18 103/61 100 Room Air 11/04/17 00:00 97.7 75 18 106/64 100 Room Air 11/03/17 20:00 97.9 83 20 110/56 99 11/03/17 18:29 79 18 Room Air 21 11/03/17 16:00 98.4 78 16 117/58 100 Room Air 11/03/17 16:00 82 11/03/17 15:00 74 16 117/59 100 Room Air 11/03/17 14:16 97.8 11/03/17 14:00 74 15 128/62 100 Room Air 11/03/17 13:00 74 19 129/69 100 Room Air 11/03/17 12:00 97.8 71 21 112/49 100 Room Air 11/03/17 12:00 66 11/03/17 11:00 68 20 125/55 100 Room Air 11/03/17 10:00 70 24 115/55 100 Room Air 11/03/17 09:00 72 18 109/54 100 Room Air 11/03/17 08:00 98.1 74 18 103/52 100 Room Air 11/03/17 08:00 71 11/03/17 07:14 76 16 Room Air 11/03/17 07:00 73 15 96/46 100 Room Air Height (Feet): 5 Height (Inches): 2.00 Weight (Pounds): 110 General Appearance: alert EENT: normal ENT inspection, scleral icterus Neck: supple Cardiovascular: normal rate Respiratory/Chest: lungs clear Abdomen: normal bowel sounds, non tender, soft Extremities: non-tender ERNESTO RAMIRES Nov 04, 2017 06:51
[2017-11-04 08:15] VITALS: BP 140/67
[2017-11-04 08:20] LABS: MEAN CORPUSCULAR HEMOGLOBIN 35.1 PG (27.0-31.0); MEAN CORPUSCULAR HGB CONC 34.4 G/DL (32.0-36.0); MEAN CORPUSCULAR VOLUME 102 FL (80-99); MEAN PLATELET VOLUME 6.9 FL (6.5-10.1); PLATELET COUNT 225 K/UL (150-450); RED BLOOD COUNT 3.19 M/UL (4.20-5.40); RED CELL DISTRIBUTION WIDTH 17.2 % (11.6-14.8); WHITE BLOOD COUNT 20.2 K/UL (4.8-10.8)
[2017-11-04] MEDS: Pantoprazole Inj IVP SCH (08:21)
[2017-11-04] MEDS: Heparin 5000 units/ml inj SUBQ SCH ×2 (08:22→20:24)
[2017-11-04 08:28] LABS: INR 1.1 (0.9-1.1); PROTHROMBIN TIME 11.5 SEC (9.30-11.50)
[2017-11-04 09:01] LABS: ALANINE AMINOTRANSFERASE 88 U/L (12-78); ALBUMIN/GLOBULIN RATIO 0.3 (1.0-2.7); ANION GAP 15 mmol/L (5-15); ASPARTATE AMINO TRANSFERASE 146 U/L (15-37); CALCIUM 8.4 MG/DL (8.5-10.1); CARBON DIOXIDE 17 MMOL/L (21-32); CHLORIDE 113 MMOL/L (98-107); CREATININE 2.3 MG/DL (0.55-1.30); POTASSIUM 2.8 MMOL/L (3.5-5.1); SODIUM 145 MMOL/L (136-145); TOTAL PROTEIN 5.3 G/DL (6.4-8.2)
[2017-11-04 09:09] LABS: BILIRUBIN,DIRECT 17.7 MG/DL (0.0-0.3); MAGNESIUM 1.9 MG/DL (1.5-2.4); PHOSPHORUS 4.9 MG/DL (2.5-4.9)
[2017-11-04 09:31] LABS: BAND NEUTROPHILS % (MANUAL) 0 % (0-8); BASOPHILS % (MANUAL) 0 % (0-2); EOSINOPHILS % (MANUAL) 1 % (0-3); HYPOCHROMASIA 1+; LYMPHOCYTES % (MANUAL) 4 % (20-45); MACROCYTES 1+; NEUTROPHILS % (MANUAL) 89 % (45-75); PLATELET ESTIMATE ADEQUATE; PLATELET MORPHOLOGY NORMAL; TOTAL CELLS COUNTED 100
--- NOTE | 2017-11-04 11:13 | Nephrology Progress Note ---
Assessment/Plan Problem List: (1) Acute renal failure (ARF) (2) Pancreas cancer (3) Jaundice Assessment Renal failure, Multifactorial: Cancer, Low Aklbumin , Liver failure , Sepsis Other: (1) Protein-calorie malnutrition, severe (2) Severe sepsis (3) Jaundice (4) Biliary drain displacement (5) Pancreas cancer (6) Rising troponin Plan Plan: K supplement now DNR DNI Correct electrolytes- Monitor renal parameters antibiotics Avoid nephrotoxics prognosis poor no dialysis in view of underlying neoplastic process Subjective ROS Limited/Unobtainable: No Constitutional: Reports: malaise, weakness Objective Objective Last 24 Hour Vital Signs Date Time Temp Pulse Resp B/P (MAP) Pulse Ox O2 Delivery O2 Flow Rate FiO2 11/04/17 08:15 97.8 74 20 140/67 99 Room Air 11/04/17 07:40 75 18 Room Air 21 11/04/17 04:00 97.7 72 18 103/61 100 Room Air 11/04/17 00:00 97.7 75 18 106/64 100 Room Air 11/03/17 20:00 97.9 83 20 110/56 99 11/03/17 18:29 79 18 Room Air 21 11/03/17 16:00 98.4 78 16 117/58 100 Room Air 11/03/17 16:00 82 11/03/17 15:00 74 16 117/59 100 Room Air 11/03/17 14:16 97.8 11/03/17 14:00 74 15 128/62 100 Room Air 11/03/17 13:00 74 19 129/69 100 Room Air 11/03/17 12:00 97.8 71 21 112/49 100 Room Air 11/03/17 12:00 66 Intake and Output 11/04/17 11/05/17 18:59 06:59 Intake Total 640 ml Balance 640 ml Intake Oral 240 ml IV Total 400 ml # Voids 1 Laboratory Tests 11/04/17 06:10: White Blood Count 20.2H, Red Blood Count 3.19L, Hemoglobin 11.2#L, Hematocrit 32.6#L, Mean Corpuscular Volume 102H, Mean Corpuscular Hemoglobin 35.1H, Mean Corpuscular Hemoglobin Concent 34.4, Red Cell Distribution Width 17.2H, Platelet Count 225, Mean Platelet Volume 6.9, Neutrophils (%) (Auto) , Lymphocytes (%) (Auto) , Monocytes (%) (Auto) , Eosinophils (%) (Auto) , Basophils (%) (Auto) , Differential Total Cells Counted 100, Neutrophils % ( Manual) 89H, Lymphocytes % (Manual) 4L, Monocytes % (Manual) 6, Eosinophils % ( Manual) 1, Basophils % (Manual) 0, Band Neutrophils 0, Platelet Estimate Adequate, Platelet Morphology Normal, Hypochromasia 1+, Macrocytosis 1+, Prothrombin Time 11.5, Prothromb Time International Ratio 1.1, Activated Partial Thromboplast Time 47H, Sodium Level 145, Potassium Level 2.8L, Chloride Level 113H, Carbon Dioxide Level 17L, Anion Gap 15, Blood Urea Nitrogen 40H, Creatinine 2.3H, Estimat Glomerular Filtration Rate , Glucose Level 106, Calcium Level 8.4L, Phosphorus Level 4.9, Magnesium Level 1.9, Total Bilirubin 20.1H, Direct Bilirubin 17.7H, Aspartate Amino Transf (AST/SGOT) 146H, Alanine Aminotransferase (ALT/SGPT) 88H, Alkaline Phosphatase 2167H, Total Protein 5.3L , Albumin 1.3L, Globulin 4.0, Albumin/Globulin Ratio 0.3L Height (Feet): 5 Height (Inches): 2.00 Weight (Pounds): 111 General Appearance: no apparent distress Cardiovascular: normal rate Respiratory/Chest: decreased breath sounds Abdomen: distended LINUS ZUÑIGA Nov 04, 2017 11:13
[2017-11-04 12:05] VITALS: BP 117/70
[2017-11-04] MEDS ORDERED: Potassium Chloride 40 MEQ in Sodium Chloride 500ML 550 ML IVPB ONE (12:30)
[2017-11-04 16:14] VITALS: BP 130/69
--- NOTE | 2017-11-04 17:53 | Pulmonology Progress Note ---
Assessment/Plan Problems: (1) Protein-calorie malnutrition, severe (2) Severe sepsis (3) Jaundice (4) Biliary drain displacement (5) Pancreas cancer (6) Hyperbilirubinemia Assessment/Plan comfort care pain management dc planning with hospice home Subjective ROS Limited/Unobtainable: No Constitutional: Reports: no symptoms HEENT: Repors: no symptoms Allergies: Coded Allergies: CODEINE (Verified Allergy, Unknown, 06/07/16) Objective Last 24 Hour Vital Signs Date Time Temp Pulse Resp B/P (MAP) Pulse Ox O2 Delivery O2 Flow Rate FiO2 11/04/17 16:14 97.6 71 18 130/69 99 Room Air 11/04/17 12:05 98.5 66 20 117/70 99 Room Air 11/04/17 08:15 97.8 74 20 140/67 99 Room Air 11/04/17 07:40 75 18 Room Air 21 11/04/17 04:00 97.7 72 18 103/61 100 Room Air 11/04/17 00:00 97.7 75 18 106/64 100 Room Air 11/03/17 20:00 97.9 83 20 110/56 99 11/03/17 18:29 79 18 Room Air 21 Intake and Output 11/04/17 11/05/17 19:00 07:00 Intake Total 780 ml Balance 780 ml Intake Oral 480 ml IV Total 300 ml # Voids 4 Objective General Appearance: icteric. Lines, tubes and drains: peripheral, HEENT: normocephalic, atraumatic Neck: non-tender, normal alignment Respiratory/Chest: chest wall non-tender, lungs clear, normal breath sounds Breasts: no masses Cardiovascular/Chest: normal rate Abdomen: normal bowel sounds Extremities: normal range of motion Microbiology Date/Time Source Procedure Growth Status 11/01/17 19:30 Blood Blood Culture - Preliminary NO GROWTH AFTER 48 HOURS Resulted 11/01/17 19:15 Blood Blood Culture - Preliminary NO GROWTH AFTER 48 HOURS Resulted Laboratory Tests 11/04/17 06:10: White Blood Count 20.2H, Red Blood Count 3.19L, Hemoglobin 11.2#L, Hematocrit 32.6#L, Mean Corpuscular Volume 102H, Mean Corpuscular Hemoglobin 35.1H, Mean Corpuscular Hemoglobin Concent 34.4, Red Cell Distribution Width 17.2H, Platelet Count 225, Mean Platelet Volume 6.9, Neutrophils (%) (Auto) , Lymphocytes (%) (Auto) , Monocytes (%) (Auto) , Eosinophils (%) (Auto) , Basophils (%) (Auto) , Differential Total Cells Counted 100, Neutrophils % ( Manual) 89H, Lymphocytes % (Manual) 4L, Monocytes % (Manual) 6, Eosinophils % ( Manual) 1, Basophils % (Manual) 0, Band Neutrophils 0, Platelet Estimate Adequate, Platelet Morphology Normal, Hypochromasia 1+, Macrocytosis 1+, Prothrombin Time 11.5, Prothromb Time International Ratio 1.1, Activated Partial Thromboplast Time 47H, Sodium Level 145, Potassium Level 2.8L, Chloride Level 113H, Carbon Dioxide Level 17L, Anion Gap 15, Blood Urea Nitrogen 40H, Creatinine 2.3H, Estimat Glomerular Filtration Rate , Glucose Level 106, Calcium Level 8.4L, Phosphorus Level 4.9, Magnesium Level 1.9, Total Bilirubin 20.1H, Direct Bilirubin 17.7H, Aspartate Amino Transf (AST/SGOT) 146H, Alanine Aminotransferase (ALT/SGPT) 88H, Alkaline Phosphatase 2167H, Total Protein 5.3L , Albumin 1.3L, Globulin 4.0, Albumin/Globulin Ratio 0.3L Current Medications Medications (Trade) Dose Ordered Sig/Yvonne Route PRN Reason Start Time Stop Time Status Last Admin Dose Admin Acetaminophen (Tylenol) 650 mg Q4H PRN ORAL fever 11/03/17 18:15 12/01/17 22:14 Albuterol/ Ipratropium (Albuterol/ Ipratropium) 3 ml EVERY 4 HOURS PRN HHN Shortness of Breath 11/03/17 17:00 11/06/17 22:14 Chlorhexidine Gluconate (Francisca-Hex 2%) 1 applic DAILY@2000 TOPIC 11/03/17 20:00 12/03/17 19:59 11/03/17 20:59 Heparin Sodium (Porcine) (Heparin 5000 units/ml) 5,000 units EVERY 12 HOURS SUBQ 11/03/17 21:00 12/02/17 08:59 11/04/17 08:22 Meropenem 1 gm/ Sodium Chloride 55 ml @ 110 mls/hr Q12H IVPB 11/04/17 03:00 11/07/17 14:59 11/04/17 15:28 Ondansetron HCl (Zofran) 4 mg Q6H PRN IVP Nausea & Vomiting 11/03/17 22:15 12/01/17 22:14 Pantoprazole (Protonix) 40 mg DAILY IVP 11/04/17 09:00 12/02/17 08:59 11/04/17 08:21 Polyethylene Glycol (Miralax) 17 gm DAILYPRN PRN ORAL Constipation 11/03/17 22:15 12/01/17 22:14 Sodium Chloride 1,000 ml @ 50 mls/hr Q20H IVLG 11/04/17 17:00 12/04/17 16:59 11/04/17 17:15 Vancomycin HCl (Vanco rx to dose) 1 ea DAILY PRN MISC . 11/04/17 09:00 12/02/17 09:44 PHILIP SALEEM Nov 04, 2017 17:53
[2017-11-04 20:00] VITALS: BP 139/65
[2017-11-04] MEDS: Dyna-Hex 2% Top Sol 2oz TOPIC SCH (20:23)
[2017-11-04] MEDS ORDERED: Vancomycin 1gm/D5W 275ml IVPB ONE ×2 (23:00)
[2017-11-05] VITALS: BP 136/70
[2017-11-05] MEDS: Meropenem 1 GM in NS 55 ML IVPB SCH ×2 (03:33→15:12)
[2017-11-05 04:00] VITALS: BP 150/65
[2017-11-05 07:12] LABS: MEAN CORPUSCULAR HEMOGLOBIN 34.5 PG (27.0-31.0); MEAN CORPUSCULAR HGB CONC 34.4 G/DL (32.0-36.0); MEAN CORPUSCULAR VOLUME 100 FL (80-99); MEAN PLATELET VOLUME 7.4 FL (6.5-10.1); PLATELET COUNT 194 K/UL (150-450); RED BLOOD COUNT 3.19 M/UL (4.20-5.40); RED CELL DISTRIBUTION WIDTH 17.1 % (11.6-14.8); WHITE BLOOD COUNT 17.1 K/UL (4.8-10.8)
[2017-11-05 07:15] LABS: ALANINE AMINOTRANSFERASE 96 U/L (12-78); ALBUMIN/GLOBULIN RATIO 0.3 (1.0-2.7); ANION GAP 13 mmol/L (5-15); ASPARTATE AMINO TRANSFERASE 149 U/L (15-37); CALCIUM 8.3 MG/DL (8.5-10.1); CARBON DIOXIDE 20 MMOL/L (21-32); CHLORIDE 110 MMOL/L (98-107); SODIUM 143 MMOL/L (136-145); TOTAL PROTEIN 5.2 G/DL (6.4-8.2)
[2017-11-05 07:18] LABS: POTASSIUM 2.5 MMOL/L (3.5-5.1)
[2017-11-05] MEDS: Pantoprazole Inj IVP SCH (08:09)
[2017-11-05] MEDS: Heparin 5000 units/ml inj SUBQ SCH ×2 (08:09→20:03)
[2017-11-05 08:11] LABS: CRP QUANT 15.3 mg/dL (0.00-0.90); MAGNESIUM 1.5 MG/DL (1.8-2.4); PHOSPHORUS 4.3 MG/DL (2.5-4.9); URIC ACID 4.4 MG/DL (2.6-7.2)
[2017-11-05 08:15] VITALS: BP 139/73
[2017-11-05 09:00] LABS: ANISOCYTOSIS 1+; BAND NEUTROPHILS % (MANUAL) 0 % (0-8); BASOPHILS % (MANUAL) 0 % (0-2); EOSINOPHILS % (MANUAL) 2 % (0-3); LYMPHOCYTES % (MANUAL) 4 % (20-45); MACROCYTES 1+; NEUTROPHILS % (MANUAL) 87 % (45-75); PLATELET ESTIMATE ADEQUATE; PLATELET MORPHOLOGY NORMAL; TOTAL CELLS COUNTED 100
--- NOTE | 2017-11-05 10:02 | Cardiology Report ---
APPROVED REPORT EXAM: Two-dimensional and M-mode echocardiogram with Doppler and color Doppler. M-Mode DIMENSIONS IVSd1.3 (0.7-1.1cm)Left Atrium (MM)3.0 (1.6-4.0cm) LVDd3.9 (3.5-5.6cm)Aortic Root2.9 (2.0-3.7cm) PWd1.0 (0.7-1.1cm)Aortic Cusp Exc.1.3 (1.5-2.0cm) IVSs2.3 cm LVDs2.6 (2.5-4.0cm) PWs1.0 cm Normal left ventricular chamber size, systolic function and wall motion. Left ventricular ejection fraction estimated to be 55-60%. No evidenceof left ventricular hypertrophy. No evidence of pericardial effusion. All other cardiac chamber sizes are within normal limits. Focal aortic valve sclerosis with adequate cusp excursion. Thickened mitral valve leaflets with normal excursion. Mitral annulus and aortic root calcification. Normal pulmonic valve structure. IVC at normal size with physiologic collapse. A color flow and spectral Doppler study was performed and revealed: No aortic regurgitation Moderate mitral regurgitation . Normal left ventricular diastolic function . Moderate tricuspid regurgitation. Tricuspid systolic velocities suggests peak right ventricular systolic pressure of 54 mmHg, consistent with mild pulmonary hypertension. No Pulmonic regurgitation present.
--- NOTE | 2017-11-05 10:19 | Nephrology Progress Note ---
Assessment/Plan Problem List: (1) Acute renal failure (ARF) (2) Pancreas cancer (3) Jaundice Assessment Renal failure, Multifactorial: Cancer, Low Albumin , Liver failure , Sepsis Other: (1) Protein-calorie malnutrition, severe (2) Severe sepsis (3) Jaundice (4) Biliary drain displacement (5) Pancreas cancer (6) Rising troponin Plan Plan: K and phos supplement now DNR DNI Correct electrolytes- Monitor renal parameters antibiotics Avoid nephrotoxics prognosis poor no dialysis in view of underlying neoplastic process Subjective ROS Limited/Unobtainable: No Constitutional: Reports: malaise, weakness Objective Objective Last 24 Hour Vital Signs Date Time Temp Pulse Resp B/P (MAP) Pulse Ox O2 Delivery O2 Flow Rate FiO2 11/05/17 08:15 98.2 82 19 139/73 98 Room Air 11/05/17 04:00 98.1 79 20 150/65 97 11/05/17 00:00 97.3 78 20 136/70 98 11/04/17 20:00 97.3 76 20 139/65 98 11/04/17 19:45 82 16 Room Air 21 11/04/17 16:14 97.6 71 18 130/69 99 Room Air 11/04/17 12:05 98.5 66 20 117/70 99 Room Air Intake and Output 11/05/17 11/06/17 19:00 07:00 Intake Total 200 ml Balance 200 ml Intake Oral 100 ml IV Total 100 ml # Voids 1 Laboratory Tests 11/04/17 20:15: Random Vancomycin Level 16.5 11/05/17 05:10: White Blood Count 17.1H, Red Blood Count 3.19L, Hemoglobin 11.0L, Hematocrit 32.0L, Mean Corpuscular Volume 100H, Mean Corpuscular Hemoglobin 34.5H, Mean Corpuscular Hemoglobin Concent 34.4, Red Cell Distribution Width 17.1H, Platelet Count 194, Mean Platelet Volume 7.4, Neutrophils (%) (Auto) , Lymphocytes (%) (Auto) , Monocytes (%) (Auto) , Eosinophils (%) (Auto) , Basophils (%) (Auto) , Differential Total Cells Counted 100, Neutrophils % ( Manual) 87H, Lymphocytes % (Manual) 4L, Monocytes % (Manual) 7, Eosinophils % ( Manual) 2, Basophils % (Manual) 0, Band Neutrophils 0, Platelet Estimate Adequate, Platelet Morphology Normal, Anisocytosis 1+, Macrocytosis 1+, Sodium Level 143, Potassium Level 2.5*L, Chloride Level 110H, Carbon Dioxide Level 20L , Anion Gap 13, Blood Urea Nitrogen 34H, Creatinine 2.0H, Estimat Glomerular Filtration Rate , Glucose Level 81, Uric Acid 4.4, Calcium Level 8.3L, Phosphorus Level 4.3, Magnesium Level 1.5L, Total Bilirubin 21.1H, Direct Bilirubin 19.0H, Gamma Glutamyl Transpeptidase 1009H, Aspartate Amino Transf ( AST/SGOT) 149H, Alanine Aminotransferase (ALT/SGPT) 96H, Alkaline Phosphatase 2537H, C-Reactive Protein, Quantitative 15.3H, Pro-B-Type Natriuretic Peptide 23627Y, Total Protein 5.2L, Albumin 1.3L, Globulin 3.9, Albumin/Globulin Ratio 0.3L Height (Feet): 5 Height (Inches): 2.00 Weight (Pounds): 96 General Appearance: no apparent distress, other - jaundiced Respiratory/Chest: decreased breath sounds Abdomen: distended LINUS ZUÑIGA Nov 05, 2017 10:19
[2017-11-05] MEDS ORDERED: Potassium Chloride 50 MEQ in Sodium Chloride 500ML 550 ML IVPB ONE (10:30)
--- NOTE | 2017-11-05 11:14 | GI Progress Note ---
Assessment/Plan Problems: (1) Biliary drain displacement ICD Codes: T85.520A - Displacement of bile duct prosthesis, initial encounter SNOMED: 788745150 (2) Protein-calorie malnutrition, severe ICD Codes: E43 - Unspecified severe protein-calorie malnutrition SNOMED: 635608500 (3) Pancreas cancer ICD Codes: C25.9 - Malignant neoplasm of pancreas, unspecified SNOMED: 556323544 (4) Elevated transaminase level ICD Codes: R74.0 - Nonspecific elevation of levels of transaminase and lactic acid dehydrogenase [LDH] SNOMED: 315530745 (5) Jaundice ICD Codes: R17 - Unspecified jaundice SNOMED: 38883734 (6) Gallbladder mass ICD Codes: K82.8 - Other specified diseases of gallbladder SNOMED: 506466434 Status: stable Status Narrative Discussed with Dr. Schaffer. Assessment/Plan DNR/DNI >> comfort care s/p external biliary drainage by radiology abx on diet s/p blood transfusion The patient was seen and examined at bedside and all new and available data was reviewed in the patients chart. I agree with the above findings, impression and plan. (Patient seen earlier today. Signature stamp does not reflect patient encounter time.). - Rafael Schaffer MD Subjective Gastrointestinal/Abdominal: Reports: no symptoms Subjective feels better Objective Last 24 Hour Vital Signs Date Time Temp Pulse Resp B/P (MAP) Pulse Ox O2 Delivery O2 Flow Rate FiO2 11/05/17 08:15 98.2 82 19 139/73 98 Room Air 11/05/17 04:00 98.1 79 20 150/65 97 11/05/17 00:00 97.3 78 20 136/70 98 11/04/17 20:00 97.3 76 20 139/65 98 11/04/17 19:45 82 16 Room Air 21 11/04/17 16:14 97.6 71 18 130/69 99 Room Air 11/04/17 12:05 98.5 66 20 117/70 99 Room Air Intake and Output 11/05/17 11/06/17 19:00 07:00 Intake Total 200 ml Balance 200 ml Intake Oral 100 ml IV Total 100 ml # Voids 2 # Bowel Movements 1 Laboratory Tests Test 11/04/17 20:15 11/05/17 05:10 Random Vancomycin Level 16.5 ug/mL White Blood Count 17.1 K/UL (4.8-10.8) H Red Blood Count 3.19 M/UL (4.20-5.40) L Hemoglobin 11.0 G/DL (12.0-16.0) L Hematocrit 32.0 % (37.0-47.0) L Mean Corpuscular Volume 100 FL (80-99) H Mean Corpuscular Hemoglobin 34.5 PG (27.0-31.0) H Mean Corpuscular Hemoglobin Concent 34.4 G/DL (32.0-36.0) Red Cell Distribution Width 17.1 % (11.6-14.8) H Platelet Count 194 K/UL (150-450) Mean Platelet Volume 7.4 FL (6.5-10.1) Neutrophils (%) (Auto) % (45.0-75.0) Lymphocytes (%) (Auto) % (20.0-45.0) Monocytes (%) (Auto) % (1.0-10.0) Eosinophils (%) (Auto) % (0.0-3.0) Basophils (%) (Auto) % (0.0-2.0) Differential Total Cells Counted 100 Neutrophils % (Manual) 87 % (45-75) H Lymphocytes % (Manual) 4 % (20-45) L Monocytes % (Manual) 7 % (1-10) Eosinophils % (Manual) 2 % (0-3) Basophils % (Manual) 0 % (0-2) Band Neutrophils 0 % (0-8) Platelet Estimate Adequate Platelet Morphology Normal Anisocytosis 1+ Macrocytosis 1+ Sodium Level 143 MMOL/L (136-145) Potassium Level 2.5 MMOL/L (3.5-5.1) *L Chloride Level 110 MMOL/L (98-107) H Carbon Dioxide Level 20 MMOL/L (21-32) L Anion Gap 13 mmol/L (5-15) Blood Urea Nitrogen 34 mg/dL (7-18) H Creatinine 2.0 MG/DL (0.55-1.30) H Estimat Glomerular Filtration Rate mL/min (>60) Glucose Level 81 MG/DL (74-106) Uric Acid 4.4 MG/DL (2.6-7.2) Calcium Level 8.3 MG/DL (8.5-10.1) L Phosphorus Level 4.3 MG/DL (2.5-4.9) Magnesium Level 1.5 MG/DL (1.8-2.4) L Total Bilirubin 21.1 MG/DL (0.2-1.0) H Direct Bilirubin 19.0 MG/DL (0.0-0.3) H Gamma Glutamyl Transpeptidase 1009 U/L (5-85) H Aspartate Amino Transf (AST/SGOT) 149 U/L (15-37) H Alanine Aminotransferase (ALT/SGPT) 96 U/L (12-78) H Alkaline Phosphatase 2537 U/L (46-116) H C-Reactive Protein, Quantitative 15.3 mg/dL (0.00-0.90) H Pro-B-Type Natriuretic Peptide 70217 pg/mL (0-125) H Total Protein 5.2 G/DL (6.4-8.2) L Albumin 1.3 G/DL (3.4-5.0) L Globulin 3.9 g/dL Albumin/Globulin Ratio 0.3 (1.0-2.7) L Height (Feet): 5 Height (Inches): 2.00 Weight (Pounds): 96 General Appearance: WD/WN, no apparent distress, alert, thin Cardiovascular: normal rate Respiratory/Chest: normal breath sounds, no respiratory distress Abdominal Exam: normal bowel sounds, non tender, soft Extremities: normal range of motion, non-tender Gricel Gar N.PAlfonso Nov 05, 2017 11:14 ERNESTO SCHAFFER Nov 07, 2017 08:39
[2017-11-05 12:15] VITALS: BP 130/68
--- NOTE | 2017-11-05 14:50 | Infectious Diseases Prog Note ---
Assessment/Plan Assessment/Plan Assessment: Septic shock- , SP Leukocytosis improving Cholangitis 2ry to obstructed biliary drain s/p IR Cholangiogram with placement of new drainage -IR Cholangio: Patient with 2 percutaneous biliary drains. The left drain was completely dislodged and outside of the patient (it was taped up to her skin ), the right duct drain was in place. The tract had completely closed. Injection via the right duct approach drain showed occlusion of the drain. The drain was exchanged over a wire for a new 8.5F biliary drain, with pigtail in the jejunum and sideholes in the right ducts. There is filling of the left duct system upon injection of the right duct drain. drain connected to gravity drainage bag. 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; s/p external biliary drainage by radiology CELSA, worsening Pancreatic CA, GB mass s/p pigtail catheter x2 HTN GERD Plan: -Continue IV Vanco and Meropenem # 4 - SP Amikacin #2 -11/02 SP Ertapenem #1 -f/u cx -Monitor CBC/BMP, temperatures Subjective Allergies: Coded Allergies: CODEINE (Verified Allergy, Unknown, 06/07/16) Subjective Afebrile Objective Vital Signs Last 24 Hour Vital Signs Date Time Temp Pulse Resp B/P (MAP) Pulse Ox O2 Delivery O2 Flow Rate FiO2 11/05/17 14:11 81 16 Room Air 21 11/05/17 12:15 98.2 99 19 130/68 97 Room Air 11/05/17 08:15 98.2 82 19 139/73 98 Room Air 11/05/17 04:00 98.1 79 20 150/65 97 11/05/17 00:00 97.3 78 20 136/70 98 11/04/17 20:00 97.3 76 20 139/65 98 11/04/17 19:45 82 16 Room Air 21 11/04/17 16:14 97.6 71 18 130/69 99 Room Air Height (Feet): 5 Height (Inches): 2.00 Weight (Pounds): 96 HEENT: PERRL Respiratory/Chest: no respiratory distress Cardiovascular: regular rhythm Abdomen: non distended, other - sheridan drain + Laboratory Tests Test 11/04/17 20:15 11/05/17 05:10 Random Vancomycin Level 16.5 ug/mL White Blood Count 17.1 K/UL (4.8-10.8) H Red Blood Count 3.19 M/UL (4.20-5.40) L Hemoglobin 11.0 G/DL (12.0-16.0) L Hematocrit 32.0 % (37.0-47.0) L Mean Corpuscular Volume 100 FL (80-99) H Mean Corpuscular Hemoglobin 34.5 PG (27.0-31.0) H Mean Corpuscular Hemoglobin Concent 34.4 G/DL (32.0-36.0) Red Cell Distribution Width 17.1 % (11.6-14.8) H Platelet Count 194 K/UL (150-450) Mean Platelet Volume 7.4 FL (6.5-10.1) Neutrophils (%) (Auto) % (45.0-75.0) Lymphocytes (%) (Auto) % (20.0-45.0) Monocytes (%) (Auto) % (1.0-10.0) Eosinophils (%) (Auto) % (0.0-3.0) Basophils (%) (Auto) % (0.0-2.0) Differential Total Cells Counted 100 Neutrophils % (Manual) 87 % (45-75) H Lymphocytes % (Manual) 4 % (20-45) L Monocytes % (Manual) 7 % (1-10) Eosinophils % (Manual) 2 % (0-3) Basophils % (Manual) 0 % (0-2) Band Neutrophils 0 % (0-8) Platelet Estimate Adequate Platelet Morphology Normal Anisocytosis 1+ Macrocytosis 1+ Sodium Level 143 MMOL/L (136-145) Potassium Level 2.5 MMOL/L (3.5-5.1) *L Chloride Level 110 MMOL/L (98-107) H Carbon Dioxide Level 20 MMOL/L (21-32) L Anion Gap 13 mmol/L (5-15) Blood Urea Nitrogen 34 mg/dL (7-18) H Creatinine 2.0 MG/DL (0.55-1.30) H Estimat Glomerular Filtration Rate mL/min (>60) Glucose Level 81 MG/DL (74-106) Uric Acid 4.4 MG/DL (2.6-7.2) Calcium Level 8.3 MG/DL (8.5-10.1) L Phosphorus Level 4.3 MG/DL (2.5-4.9) Magnesium Level 1.5 MG/DL (1.8-2.4) L Total Bilirubin 21.1 MG/DL (0.2-1.0) H Direct Bilirubin 19.0 MG/DL (0.0-0.3) H Gamma Glutamyl Transpeptidase 1009 U/L (5-85) H Aspartate Amino Transf (AST/SGOT) 149 U/L (15-37) H Alanine Aminotransferase (ALT/SGPT) 96 U/L (12-78) H Alkaline Phosphatase 2537 U/L (46-116) H C-Reactive Protein, Quantitative 15.3 mg/dL (0.00-0.90) H Pro-B-Type Natriuretic Peptide 90167 pg/mL (0-125) H Total Protein 5.2 G/DL (6.4-8.2) L Albumin 1.3 G/DL (3.4-5.0) L Globulin 3.9 g/dL Albumin/Globulin Ratio 0.3 (1.0-2.7) L Current Medications Medications (Trade) Dose Ordered Sig/Yvonne Route PRN Reason Start Time Stop Time Status Last Admin Dose Admin Acetaminophen (Tylenol) 650 mg Q4H PRN ORAL fever 11/03/17 18:15 12/01/17 22:14 Albuterol/ Ipratropium (Albuterol/ Ipratropium) 3 ml EVERY 4 HOURS PRN HHN Shortness of Breath 11/03/17 17:00 11/06/17 22:14 Chlorhexidine Gluconate (Francisca-Hex 2%) 1 applic DAILY@2000 TOPIC 11/03/17 20:00 12/03/17 19:59 11/04/17 20:23 Heparin Sodium (Porcine) (Heparin 5000 units/ml) 5,000 units EVERY 12 HOURS SUBQ 11/03/17 21:00 12/02/17 08:59 11/05/17 08:09 Meropenem 1 gm/ Sodium Chloride 55 ml @ 110 mls/hr Q12H IVPB 11/04/17 03:00 11/07/17 14:59 11/05/17 03:33 Ondansetron HCl (Zofran) 4 mg Q6H PRN IVP Nausea & Vomiting 11/03/17 22:15 12/01/17 22:14 Pantoprazole (Protonix) 40 mg DAILY IVP 11/04/17 09:00 12/02/17 08:59 11/05/17 08:09 Polyethylene Glycol (Miralax) 17 gm DAILYPRN PRN ORAL Constipation 11/03/17 22:15 12/01/17 22:14 Potassium Chloride 50 meq/ Sodium Chloride 575 ml @ 115 mls/hr ONCE ONCE IVPB 11/05/17 10:30 11/05/17 15:29 11/05/17 11:00 Sodium Chloride 1,000 ml @ 50 mls/hr Q20H IVLG 11/04/17 17:00 12/04/17 16:59 11/05/17 13:07 Vancomycin HCl (Vanco rx to dose) 1 ea DAILY PRN MISC . 11/04/17 09:00 12/02/17 09:44 FADY SNYDER M.D. Nov 05, 2017 14:50
[2017-11-05 16:18] VITALS: BP 134/70
[2017-11-05] MEDS ORDERED: NS 500ML ONE (16:51)
[2017-11-05] MEDS ORDERED: Tubing IV Secondary IV ONE (16:51)
--- NOTE | 2017-11-05 16:58 | Pulmonology Progress Note ---
Assessment/Plan Problems: (1) Protein-calorie malnutrition, severe (2) Severe sepsis (3) Jaundice (4) Biliary drain displacement (5) Pancreas cancer (6) Hyperbilirubinemia Assessment/Plan comfort care pain management dc planning with hospice home HMO wants their hospice to evaluate the pt and send her to [facility]. Subjective ROS Limited/Unobtainable: No Interval Events: somnolent Allergies: Coded Allergies: CODEINE (Verified Allergy, Unknown, 06/07/16) Objective Last 24 Hour Vital Signs Date Time Temp Pulse Resp B/P (MAP) Pulse Ox O2 Delivery O2 Flow Rate FiO2 11/05/17 16:18 98.1 85 18 134/70 98 Room Air 11/05/17 14:11 81 16 Room Air 21 11/05/17 12:15 98.2 99 19 130/68 97 Room Air 11/05/17 08:15 98.2 82 19 139/73 98 Room Air 11/05/17 04:00 98.1 79 20 150/65 97 11/05/17 00:00 97.3 78 20 136/70 98 11/04/17 20:00 97.3 76 20 139/65 98 11/04/17 19:45 82 16 Room Air 21 Intake and Output 11/05/17 11/06/17 19:00 07:00 Intake Total 1070 ml Balance 1070 ml Intake Oral 540 ml IV Total 530 ml # Voids 3 # Bowel Movements 1 Objective General Appearance: icteric. Lines, tubes and drains: peripheral, HEENT: normocephalic, atraumatic Neck: non-tender, normal alignment Respiratory/Chest: chest wall non-tender, lungs clear, normal breath sounds Breasts: no masses Cardiovascular/Chest: normal rate Abdomen: normal bowel sounds Extremities: normal range of motion Laboratory Tests 11/04/17 20:15: Random Vancomycin Level 16.5 11/05/17 05:10: White Blood Count 17.1H, Red Blood Count 3.19L, Hemoglobin 11.0L, Hematocrit 32.0L, Mean Corpuscular Volume 100H, Mean Corpuscular Hemoglobin 34.5H, Mean Corpuscular Hemoglobin Concent 34.4, Red Cell Distribution Width 17.1H, Platelet Count 194, Mean Platelet Volume 7.4, Neutrophils (%) (Auto) , Lymphocytes (%) (Auto) , Monocytes (%) (Auto) , Eosinophils (%) (Auto) , Basophils (%) (Auto) , Differential Total Cells Counted 100, Neutrophils % ( Manual) 87H, Lymphocytes % (Manual) 4L, Monocytes % (Manual) 7, Eosinophils % ( Manual) 2, Basophils % (Manual) 0, Band Neutrophils 0, Platelet Estimate Adequate, Platelet Morphology Normal, Anisocytosis 1+, Macrocytosis 1+, Sodium Level 143, Potassium Level 2.5*L, Chloride Level 110H, Carbon Dioxide Level 20L , Anion Gap 13, Blood Urea Nitrogen 34H, Creatinine 2.0H, Estimat Glomerular Filtration Rate , Glucose Level 81, Uric Acid 4.4, Calcium Level 8.3L, Phosphorus Level 4.3, Magnesium Level 1.5L, Total Bilirubin 21.1H, Direct Bilirubin 19.0H, Gamma Glutamyl Transpeptidase 1009H, Aspartate Amino Transf ( AST/SGOT) 149H, Alanine Aminotransferase (ALT/SGPT) 96H, Alkaline Phosphatase 2537H, C-Reactive Protein, Quantitative 15.3H, Pro-B-Type Natriuretic Peptide 81066V, Total Protein 5.2L, Albumin 1.3L, Globulin 3.9, Albumin/Globulin Ratio 0.3L Current Medications Medications (Trade) Dose Ordered Sig/Yvonne Route PRN Reason Start Time Stop Time Status Last Admin Dose Admin Acetaminophen (Tylenol) 650 mg Q4H PRN ORAL fever 11/03/17 18:15 12/01/17 22:14 Albuterol/ Ipratropium (Albuterol/ Ipratropium) 3 ml EVERY 4 HOURS PRN HHN Shortness of Breath 11/03/17 17:00 11/06/17 22:14 Chlorhexidine Gluconate (Francisca-Hex 2%) 1 applic DAILY@1999 TOPIC 11/03/17 20:00 12/03/17 19:59 11/04/17 20:23 Heparin Sodium (Porcine) (Heparin 5000 units/ml) 5,000 units EVERY 12 HOURS SUBQ 11/03/17 21:00 12/02/17 08:59 11/05/17 08:09 Meropenem 1 gm/ Sodium Chloride 55 ml @ 110 mls/hr Q12H IVPB 11/04/17 03:00 11/07/17 14:59 11/05/17 15:12 Ondansetron HCl (Zofran) 4 mg Q6H PRN IVP Nausea & Vomiting 11/03/17 22:15 12/01/17 22:14 Pantoprazole (Protonix) 40 mg DAILY IVP 11/04/17 09:00 12/02/17 08:59 11/05/17 08:09 Polyethylene Glycol (Miralax) 17 gm DAILYPRN PRN ORAL Constipation 11/03/17 22:15 12/01/17 22:14 Sodium Chloride 1,000 ml @ 50 mls/hr Q20H IVLG 11/04/17 17:00 12/04/17 16:59 11/05/17 13:07 Vancomycin HCl (Vanco rx to dose) 1 ea DAILY PRN MISC . 11/04/17 09:00 12/02/17 09:44 PHILIP SALEEM Nov 05, 2017 16:58
[2017-11-05 20:00] VITALS: BP 147/75
[2017-11-05] MEDS: Dyna-Hex 2% Top Sol 2oz TOPIC SCH (20:03)
[2017-11-06] VITALS: BP 138/64
[2017-11-06] MEDS: Meropenem 1 GM in NS 55 ML IVPB SCH ×2 (02:05→15:32)
[2017-11-06 04:00] VITALS: BP 136/66
[2017-11-06 06:51] LABS: BASOPHILS % (AUTO) 0.4 % (0.0-2.0); EOSINOPHILS % (AUTO) 2.8 % (0.0-3.0); MEAN CORPUSCULAR HEMOGLOBIN 35.1 PG (27.0-31.0); MEAN CORPUSCULAR HGB CONC 34.5 G/DL (32.0-36.0); MEAN CORPUSCULAR VOLUME 102 FL (80-99); MEAN PLATELET VOLUME 7.6 FL (6.5-10.1); MONOCYTES % (AUTO) 7.4 % (1.0-10.0); NEUTROPHILS % (AUTO) 84.4 % (45.0-75.0); PLATELET COUNT 154 K/UL (150-450); RED BLOOD COUNT 2.95 M/UL (4.20-5.40); WHITE BLOOD COUNT 12.7 K/UL (4.8-10.8)
[2017-11-06 07:57] LABS: ALANINE AMINOTRANSFERASE 91 U/L (12-78); ALBUMIN/GLOBULIN RATIO 0.4 (1.0-2.7); ANION GAP 12 mmol/L (5-15); ASPARTATE AMINO TRANSFERASE 150 U/L (15-37); CALCIUM 7.8 MG/DL (8.5-10.1); CARBON DIOXIDE 22 MMOL/L (21-32); CHLORIDE 111 MMOL/L (98-107); CREATININE 1.6 MG/DL (0.55-1.30); CRP QUANT 11.8 mg/dL (0.00-0.90); MAGNESIUM 1.4 MG/DL (1.8-2.4); PHOSPHORUS 3.5 MG/DL (2.5-4.9); SODIUM 145 MMOL/L (136-145)
[2017-11-06 08:16] LABS: POTASSIUM 2.5 MMOL/L (3.5-5.1)
[2017-11-06 08:17] LABS: BILIRUBIN,DIRECT 18.1 MG/DL (0.0-0.3)
[2017-11-06 08:23] VITALS: BP 130/70
[2017-11-06] MEDS: Pantoprazole Inj IVP SCH (09:06)
[2017-11-06] MEDS: Heparin 5000 units/ml inj SUBQ SCH ×2 (09:41→21:16)
[2017-11-06] MEDS ORDERED: Potassium Chloride 50 MEQ in Sodium Chloride 500ML 550 ML IVPB ONE (10:00)
[2017-11-06 11:39] VITALS: BP 136/74
--- NOTE | 2017-11-06 12:22 | Nephrology Progress Note ---
Assessment/Plan Problem List: (1) Acute renal failure (ARF) (2) Pancreas cancer (3) Jaundice Assessment Low K Renal failure, Cr lowered Multifactorial: Cancer, Low Albumin , Liver failure , Sepsis Other: (1) Protein-calorie malnutrition, severe (2) Severe sepsis (3) Jaundice (4) Biliary drain displacement (5) Pancreas cancer (6) Rising troponin Plan Plan: K and phos supplement now DNR DNI Correct electrolytes- Monitor renal parameters antibiotics Avoid nephrotoxics prognosis poor no dialysis in view of underlying neoplastic process Subjective ROS Limited/Unobtainable: No Constitutional: Reports: malaise Objective Objective Last 24 Hour Vital Signs Date Time Temp Pulse Resp B/P (MAP) Pulse Ox O2 Delivery O2 Flow Rate FiO2 11/06/17 11:39 98.0 71 21 136/74 99 Room Air 11/06/17 08:23 97.9 80 21 130/70 100 Room Air 11/06/17 04:00 Room Air 11/06/17 04:00 98.1 83 20 136/66 98 11/06/17 00:00 98.1 86 20 138/64 100 11/06/17 00:00 Room Air 11/05/17 20:00 98.1 84 20 147/75 100 11/05/17 20:00 Room Air 11/05/17 19:10 79 16 Room Air 21 11/05/17 16:18 98.1 85 18 134/70 98 Room Air 11/05/17 14:11 81 16 Room Air 21 Laboratory Tests 11/06/17 05:15: White Blood Count 12.7H, Red Blood Count 2.95L, Hemoglobin 10.3L, Hematocrit 29.9L, Mean Corpuscular Volume 102H, Mean Corpuscular Hemoglobin 35.1H, Mean Corpuscular Hemoglobin Concent 34.5, Red Cell Distribution Width 17.0H, Platelet Count 154, Mean Platelet Volume 7.6, Neutrophils (%) (Auto) 84.4H, Lymphocytes (%) (Auto) 5.0L, Monocytes (%) (Auto) 7.4, Eosinophils (%) (Auto) 2.8, Basophils (%) (Auto) 0.4, Sodium Level 145, Potassium Level 2.5*L, Chloride Level 111H, Carbon Dioxide Level 22, Anion Gap 12, Blood Urea Nitrogen 26H, Creatinine 1.6H, Estimat Glomerular Filtration Rate , Glucose Level 81, Uric Acid 3.0, Calcium Level 7.8L, Phosphorus Level 3.5, Magnesium Level 1.4L, Total Bilirubin 20.8H, Direct Bilirubin 18.1H, Aspartate Amino Transf (AST/SGOT ) 150H, Alanine Aminotransferase (ALT/SGPT) 91H, Alkaline Phosphatase 2909H, C- Reactive Protein, Quantitative 11.8H, Pro-B-Type Natriuretic Peptide 82717J, Total Protein 5.0L, Albumin 1.3L, Globulin 3.7, Albumin/Globulin Ratio 0.4L, Random Vancomycin Level 17.9 Height (Feet): 5 Height (Inches): 2.00 Weight (Pounds): 92 General Appearance: no apparent distress Respiratory/Chest: decreased breath sounds Abdomen: distended Objective no change LINUS ZUÑIGA Nov 06, 2017 12:22
--- NOTE | 2017-11-06 13:10 | GI Progress Note ---
Assessment/Plan Problems: (1) Biliary drain displacement ICD Codes: T85.520A - Displacement of bile duct prosthesis, initial encounter SNOMED: 066929608 (2) Protein-calorie malnutrition, severe ICD Codes: E43 - Unspecified severe protein-calorie malnutrition SNOMED: 233036202 (3) Pancreas cancer ICD Codes: C25.9 - Malignant neoplasm of pancreas, unspecified SNOMED: 852078273 (4) Elevated transaminase level ICD Codes: R74.0 - Nonspecific elevation of levels of transaminase and lactic acid dehydrogenase [LDH] SNOMED: 129202580 (5) Jaundice ICD Codes: R17 - Unspecified jaundice SNOMED: 07663767 (6) Gallbladder mass ICD Codes: K82.8 - Other specified diseases of gallbladder SNOMED: 391049020 Status: unchanged Status Narrative Discussed with Dr. Schaffer. Assessment/Plan DNR/DNI >> comfort care s/p external biliary drainage by radiology abx on diet s/p blood transfusion Subjective Subjective feels better Objective Last 24 Hour Vital Signs Date Time Temp Pulse Resp B/P (MAP) Pulse Ox O2 Delivery O2 Flow Rate FiO2 11/06/17 11:39 98.0 71 21 136/74 99 Room Air 11/06/17 08:23 97.9 80 21 130/70 100 Room Air 11/06/17 04:00 Room Air 11/06/17 04:00 98.1 83 20 136/66 98 11/06/17 00:00 98.1 86 20 138/64 100 11/06/17 00:00 Room Air 11/05/17 20:00 98.1 84 20 147/75 100 11/05/17 20:00 Room Air 11/05/17 19:10 79 16 Room Air 21 11/05/17 16:18 98.1 85 18 134/70 98 Room Air 11/05/17 14:11 81 16 Room Air 21 Intake and Output 11/06/17 11/07/17 19:00 07:00 Intake Total 430 ml Balance 430 ml IV Total 430 ml Laboratory Tests Test 11/06/17 05:15 White Blood Count 12.7 K/UL (4.8-10.8) H Red Blood Count 2.95 M/UL (4.20-5.40) L Hemoglobin 10.3 G/DL (12.0-16.0) L Hematocrit 29.9 % (37.0-47.0) L Mean Corpuscular Volume 102 FL (80-99) H Mean Corpuscular Hemoglobin 35.1 PG (27.0-31.0) H Mean Corpuscular Hemoglobin Concent 34.5 G/DL (32.0-36.0) Red Cell Distribution Width 17.0 % (11.6-14.8) H Platelet Count 154 K/UL (150-450) Mean Platelet Volume 7.6 FL (6.5-10.1) Neutrophils (%) (Auto) 84.4 % (45.0-75.0) H Lymphocytes (%) (Auto) 5.0 % (20.0-45.0) L Monocytes (%) (Auto) 7.4 % (1.0-10.0) Eosinophils (%) (Auto) 2.8 % (0.0-3.0) Basophils (%) (Auto) 0.4 % (0.0-2.0) Sodium Level 145 MMOL/L (136-145) Potassium Level 2.5 MMOL/L (3.5-5.1) *L Chloride Level 111 MMOL/L (98-107) H Carbon Dioxide Level 22 MMOL/L (21-32) Anion Gap 12 mmol/L (5-15) Blood Urea Nitrogen 26 mg/dL (7-18) H Creatinine 1.6 MG/DL (0.55-1.30) H Estimat Glomerular Filtration Rate mL/min (>60) Glucose Level 81 MG/DL (74-106) Uric Acid 3.0 MG/DL (2.6-7.2) Calcium Level 7.8 MG/DL (8.5-10.1) L Phosphorus Level 3.5 MG/DL (2.5-4.9) Magnesium Level 1.4 MG/DL (1.8-2.4) L Total Bilirubin 20.8 MG/DL (0.2-1.0) H Direct Bilirubin 18.1 MG/DL (0.0-0.3) H Aspartate Amino Transf (AST/SGOT) 150 U/L (15-37) H Alanine Aminotransferase (ALT/SGPT) 91 U/L (12-78) H Alkaline Phosphatase 2909 U/L (46-116) H C-Reactive Protein, Quantitative 11.8 mg/dL (0.00-0.90) H Pro-B-Type Natriuretic Peptide 47465 pg/mL (0-125) H Total Protein 5.0 G/DL (6.4-8.2) L Albumin 1.3 G/DL (3.4-5.0) L Globulin 3.7 g/dL Albumin/Globulin Ratio 0.4 (1.0-2.7) L Random Vancomycin Level 17.9 ug/mL Height (Feet): 5 Height (Inches): 2.00 Weight (Pounds): 92 General Appearance: WD/WN, no apparent distress, alert, thin Cardiovascular: normal rate Respiratory/Chest: normal breath sounds, no respiratory distress Abdominal Exam: normal bowel sounds, non tender, soft Extremities: normal range of motion, non-tender Gricel Gar N.P. Nov 06, 2017 13:10
--- NOTE | 2017-11-06 15:42 | Infectious Diseases Prog Note ---
Assessment/Plan Assessment/Plan Assessment: Septic shock- , SP Leukocytosis improving Cholangitis 2ry to obstructed biliary drain s/p IR Cholangiogram with placement of new drainage -IR Cholangio: Patient with 2 percutaneous biliary drains. The left drain was completely dislodged and outside of the patient (it was taped up to her skin ), the right duct drain was in place. The tract had completely closed. Injection via the right duct approach drain showed occlusion of the drain. The drain was exchanged over a wire for a new 8.5F biliary drain, with pigtail in the jejunum and sideholes in the right ducts. There is filling of the left duct system upon injection of the right duct drain. drain connected to gravity drainage bag. 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; s/p external biliary drainage by radiology CELSA, improving Pancreatic CA, GB mass s/p pigtail catheter x2 HTN GERD Plan: -Continue IV Vanco and Meropenem # 5 / 7-10 - SP Amikacin #2 -11/02 SP Ertapenem #1 -f/u cx -Monitor CBC/BMP, temperatures Subjective Constitutional: Denies: no symptoms, fever, chills, fatigue, anorexia, drenching sweats, other Allergies: Coded Allergies: CODEINE (Verified Allergy, Unknown, 06/07/16) Subjective Afebrile Objective Vital Signs Last 24 Hour Vital Signs Date Time Temp Pulse Resp B/P (MAP) Pulse Ox O2 Delivery O2 Flow Rate FiO2 11/06/17 11:39 98.0 71 21 136/74 99 Room Air 11/06/17 10:05 80 16 Room Air 11/06/17 08:23 97.9 80 21 130/70 100 Room Air 11/06/17 04:00 Room Air 11/06/17 04:00 98.1 83 20 136/66 98 11/06/17 00:00 98.1 86 20 138/64 100 11/06/17 00:00 Room Air 11/05/17 20:00 98.1 84 20 147/75 100 11/05/17 20:00 Room Air 11/05/17 19:10 79 16 Room Air 21 11/05/17 16:18 98.1 85 18 134/70 98 Room Air Height (Feet): 5 Height (Inches): 2.00 Weight (Pounds): 92 HEENT: anicteric Respiratory/Chest: no accessory muscle use Cardiovascular: no gallop/murmur Abdomen: non distended Laboratory Tests Test 11/06/17 05:15 White Blood Count 12.7 K/UL (4.8-10.8) H Red Blood Count 2.95 M/UL (4.20-5.40) L Hemoglobin 10.3 G/DL (12.0-16.0) L Hematocrit 29.9 % (37.0-47.0) L Mean Corpuscular Volume 102 FL (80-99) H Mean Corpuscular Hemoglobin 35.1 PG (27.0-31.0) H Mean Corpuscular Hemoglobin Concent 34.5 G/DL (32.0-36.0) Red Cell Distribution Width 17.0 % (11.6-14.8) H Platelet Count 154 K/UL (150-450) Mean Platelet Volume 7.6 FL (6.5-10.1) Neutrophils (%) (Auto) 84.4 % (45.0-75.0) H Lymphocytes (%) (Auto) 5.0 % (20.0-45.0) L Monocytes (%) (Auto) 7.4 % (1.0-10.0) Eosinophils (%) (Auto) 2.8 % (0.0-3.0) Basophils (%) (Auto) 0.4 % (0.0-2.0) Sodium Level 145 MMOL/L (136-145) Potassium Level 2.5 MMOL/L (3.5-5.1) *L Chloride Level 111 MMOL/L (98-107) H Carbon Dioxide Level 22 MMOL/L (21-32) Anion Gap 12 mmol/L (5-15) Blood Urea Nitrogen 26 mg/dL (7-18) H Creatinine 1.6 MG/DL (0.55-1.30) H Estimat Glomerular Filtration Rate mL/min (>60) Glucose Level 81 MG/DL (74-106) Uric Acid 3.0 MG/DL (2.6-7.2) Calcium Level 7.8 MG/DL (8.5-10.1) L Phosphorus Level 3.5 MG/DL (2.5-4.9) Magnesium Level 1.4 MG/DL (1.8-2.4) L Total Bilirubin 20.8 MG/DL (0.2-1.0) H Direct Bilirubin 18.1 MG/DL (0.0-0.3) H Aspartate Amino Transf (AST/SGOT) 150 U/L (15-37) H Alanine Aminotransferase (ALT/SGPT) 91 U/L (12-78) H Alkaline Phosphatase 2909 U/L (46-116) H C-Reactive Protein, Quantitative 11.8 mg/dL (0.00-0.90) H Pro-B-Type Natriuretic Peptide 77190 pg/mL (0-125) H Total Protein 5.0 G/DL (6.4-8.2) L Albumin 1.3 G/DL (3.4-5.0) L Globulin 3.7 g/dL Albumin/Globulin Ratio 0.4 (1.0-2.7) L Random Vancomycin Level 17.9 ug/mL Current Medications Medications (Trade) Dose Ordered Sig/Yvonne Route PRN Reason Start Time Stop Time Status Last Admin Dose Admin Acetaminophen (Tylenol) 650 mg Q4H PRN ORAL fever 11/03/17 18:15 12/01/17 22:14 Albuterol/ Ipratropium (Albuterol/ Ipratropium) 3 ml EVERY 4 HOURS PRN HHN Shortness of Breath 11/03/17 17:00 11/06/17 22:14 Chlorhexidine Gluconate (Francisca-Hex 2%) 1 applic DAILY@2000 TOPIC 11/03/17 20:00 12/03/17 19:59 11/05/17 20:03 Heparin Sodium (Porcine) (Heparin 5000 units/ml) 5,000 units EVERY 12 HOURS SUBQ 11/03/17 21:00 12/02/17 08:59 11/05/17 20:03 Meropenem 1 gm/ Sodium Chloride 55 ml @ 110 mls/hr Q12H IVPB 11/04/17 03:00 11/07/17 14:59 11/06/17 15:32 Ondansetron HCl (Zofran) 4 mg Q6H PRN IVP Nausea & Vomiting 11/03/17 22:15 12/01/17 22:14 Pantoprazole (Protonix) 40 mg DAILY IVP 11/04/17 09:00 12/02/17 08:59 11/06/17 09:06 Polyethylene Glycol (Miralax) 17 gm DAILYPRN PRN ORAL Constipation 11/03/17 22:15 12/01/17 22:14 Potassium Chloride (K-Dur) 40 meq TWICE A DAY ORAL 11/06/17 09:30 12/06/17 09:29 11/06/17 09:12 Sodium Chloride 1,000 ml @ 50 mls/hr Q20H IVLG 11/04/17 17:00 12/04/17 16:59 11/06/17 09:05 Vancomycin HCl (Vanco rx to dose) 1 ea DAILY PRN MISC . 11/04/17 09:00 12/02/17 09:44 Vancomycin HCl 1 gm/Dextrose 275 ml @ 183.708 mls/hr ONCE ONCE IVPB 11/06/17 18:00 11/06/17 19:29 FADY SNYDER M.D. Nov 06, 2017 15:42
[2017-11-06 15:53] VITALS: BP 145/80
--- NOTE | 2017-11-06 17:01 | Pulmonology Progress Note ---
Assessment/Plan Problems: (1) Protein-calorie malnutrition, severe (2) Severe sepsis (3) Jaundice (4) Biliary drain displacement (5) Pancreas cancer (6) Hyperbilirubinemia Assessment/Plan comfort care pain management bun/creatinine decreasing wbc deceasing dc planning with hospice home HMO wants their hospice to evaluate the pt and send her to [facility]. pt can't live home by herself. Subjective Interval Events: no new complains Allergies: Coded Allergies: CODEINE (Verified Allergy, Unknown, 06/07/16) Objective Last 24 Hour Vital Signs Date Time Temp Pulse Resp B/P (MAP) Pulse Ox O2 Delivery O2 Flow Rate FiO2 11/06/17 15:53 97.6 87 21 145/80 98 Room Air 11/06/17 11:39 98.0 71 21 136/74 99 Room Air 11/06/17 10:05 80 16 Room Air 21 11/06/17 08:23 97.9 80 21 130/70 100 Room Air 11/06/17 04:00 Room Air 11/06/17 04:00 98.1 83 20 136/66 98 11/06/17 00:00 98.1 86 20 138/64 100 11/06/17 00:00 Room Air 11/05/17 20:00 98.1 84 20 147/75 100 11/05/17 20:00 Room Air 11/05/17 19:10 79 16 Room Air 21 Intake and Output 11/06/17 11/07/17 19:00 07:00 Intake Total 910 ml Balance 910 ml IV Total 910 ml Objective General Appearance: icteric. Lines, tubes and drains: peripheral, HEENT: normocephalic, atraumatic Neck: non-tender, normal alignment Respiratory/Chest: chest wall non-tender, lungs clear, normal breath sounds Breasts: no masses Cardiovascular/Chest: normal rate Abdomen: normal bowel sounds Extremities: normal range of motion Laboratory Tests 11/06/17 05:15: White Blood Count 12.7H, Red Blood Count 2.95L, Hemoglobin 10.3L, Hematocrit 29.9L, Mean Corpuscular Volume 102H, Mean Corpuscular Hemoglobin 35.1H, Mean Corpuscular Hemoglobin Concent 34.5, Red Cell Distribution Width 17.0H, Platelet Count 154, Mean Platelet Volume 7.6, Neutrophils (%) (Auto) 84.4H, Lymphocytes (%) (Auto) 5.0L, Monocytes (%) (Auto) 7.4, Eosinophils (%) (Auto) 2.8, Basophils (%) (Auto) 0.4, Sodium Level 145, Potassium Level 2.5*L, Chloride Level 111H, Carbon Dioxide Level 22, Anion Gap 12, Blood Urea Nitrogen 26H, Creatinine 1.6H, Estimat Glomerular Filtration Rate , Glucose Level 81, Uric Acid 3.0, Calcium Level 7.8L, Phosphorus Level 3.5, Magnesium Level 1.4L, Total Bilirubin 20.8H, Direct Bilirubin 18.1H, Aspartate Amino Transf (AST/SGOT ) 150H, Alanine Aminotransferase (ALT/SGPT) 91H, Alkaline Phosphatase 2909H, C- Reactive Protein, Quantitative 11.8H, Pro-B-Type Natriuretic Peptide 74686P, Total Protein 5.0L, Albumin 1.3L, Globulin 3.7, Albumin/Globulin Ratio 0.4L, Random Vancomycin Level 17.9 Current Medications Medications (Trade) Dose Ordered Sig/Yvonne Route PRN Reason Start Time Stop Time Status Last Admin Dose Admin Acetaminophen (Tylenol) 650 mg Q4H PRN ORAL fever 11/03/17 18:15 12/01/17 22:14 Albuterol/ Ipratropium (Albuterol/ Ipratropium) 3 ml EVERY 4 HOURS PRN HHN Shortness of Breath 11/03/17 17:00 11/06/17 22:14 Chlorhexidine Gluconate (Francisca-Hex 2%) 1 applic DAILY@2000 TOPIC 11/03/17 20:00 12/03/17 19:59 11/05/17 20:03 Heparin Sodium (Porcine) (Heparin 5000 units/ml) 5,000 units EVERY 12 HOURS SUBQ 11/03/17 21:00 12/02/17 08:59 11/05/17 20:03 Meropenem 1 gm/ Sodium Chloride 55 ml @ 110 mls/hr Q12H IVPB 11/04/17 03:00 11/07/17 14:59 11/06/17 15:32 Ondansetron HCl (Zofran) 4 mg Q6H PRN IVP Nausea & Vomiting 11/03/17 22:15 12/01/17 22:14 Pantoprazole (Protonix) 40 mg DAILY IVP 11/04/17 09:00 12/02/17 08:59 11/06/17 09:06 Polyethylene Glycol (Miralax) 17 gm DAILYPRN PRN ORAL Constipation 11/03/17 22:15 12/01/17 22:14 Potassium Chloride (K-Dur) 40 meq TWICE A DAY ORAL 11/06/17 09:30 12/06/17 09:29 11/06/17 09:12 Sodium Chloride 1,000 ml @ 50 mls/hr Q20H IVLG 11/04/17 17:00 12/04/17 16:59 11/06/17 09:05 Vancomycin HCl (Vanco rx to dose) 1 ea DAILY PRN MISC . 11/04/17 09:00 12/02/17 09:44 Vancomycin HCl 1 gm/Dextrose 275 ml @ 183.708 mls/hr ONCE ONCE IVPB 11/06/17 18:00 11/06/17 19:29 PHILIP SALEEM Nov 06, 2017 17:01
[2017-11-06] MEDS ORDERED: Vancomycin 1gm/D5W 275ml IVPB ONE ×2 (18:00)
[2017-11-06] MEDS ORDERED: Tubing IV Secondary IV ONE (18:51)
[2017-11-06 20:00] VITALS: BP 152/79
--- NOTE | 2017-11-06 22:41 | Consultation ---
History of Present Illness General Date patient seen: Nov 06, 2017 Chief Complaint: Back Pain-No Injury Present Illness HPI 77-year-old female brought in by EMS after increased back pain. The patient had prior history of pancreatic CA. the pt has anxiety and unable to sleep/ family at bedside Allergies: Coded Allergies: CODEINE (Verified Allergy, Unknown, 06/07/16) Medication History Scheduled Atenolol* (Tenormin*), 25 MG ORAL DAILY, (Reported) Omeprazole (Omeprazole), 40 MG ORAL DAILY, (Reported) Patient History History Provided By: Patient, Medical Record, PMD Healthcare decision maker self Resuscitation status Full Code Advanced Directive on File No Past Medical/Surgical History Past Medical/Surgical History: (1) Abnormal laboratory test result (2) Elevated triglycerides with high cholesterol (3) Acute pancreatitis due to calculus of common bile duct (4) Hypokalemia (5) Hypotension (6) Severe sepsis (7) Abdominal pain (8) Gallbladder mass (9) Hepatitis (10) Hyperbilirubinemia (11) Jaundice (12) Elevated transaminase level (13) Pancreas cancer (14) Protein-calorie malnutrition, severe (15) Biliary drain displacement (16) Acute renal failure (ARF) Review of Systems Psychiatric: Reports: prior hx, anxiety, depressed feelings Physical Exam General Appearance: no apparent distress, alert, cachetic Neurologic: alert, oriented x 3, responsive, depressed affect Last 24 Hour Vital Signs Date Time Temp Pulse Resp B/P (MAP) Pulse Ox O2 Delivery O2 Flow Rate FiO2 11/06/17 20:00 99.0 89 18 152/79 99 11/06/17 15:53 97.6 87 21 145/80 98 Room Air 11/06/17 11:39 98.0 71 21 136/74 99 Room Air 11/06/17 10:05 80 16 Room Air 21 11/06/17 08:23 97.9 80 21 130/70 100 Room Air 11/06/17 04:00 Room Air 11/06/17 04:00 98.1 83 20 136/66 98 11/06/17 00:00 98.1 86 20 138/64 100 11/06/17 00:00 Room Air Intake and Output 11/06/17 11/07/17 19:00 07:00 Intake Total 1700 ml 50 ml Output Total 200 ml Balance 1500 ml 50 ml Intake Oral 520 ml IV Total 1180 ml 50 ml Output Urine Total 200 ml # Voids 1 Laboratory Tests Test 11/06/17 05:15 White Blood Count 12.7 K/UL (4.8-10.8) H Red Blood Count 2.95 M/UL (4.20-5.40) L Hemoglobin 10.3 G/DL (12.0-16.0) L Hematocrit 29.9 % (37.0-47.0) L Mean Corpuscular Volume 102 FL (80-99) H Mean Corpuscular Hemoglobin 35.1 PG (27.0-31.0) H Mean Corpuscular Hemoglobin Concent 34.5 G/DL (32.0-36.0) Red Cell Distribution Width 17.0 % (11.6-14.8) H Platelet Count 154 K/UL (150-450) Mean Platelet Volume 7.6 FL (6.5-10.1) Neutrophils (%) (Auto) 84.4 % (45.0-75.0) H Lymphocytes (%) (Auto) 5.0 % (20.0-45.0) L Monocytes (%) (Auto) 7.4 % (1.0-10.0) Eosinophils (%) (Auto) 2.8 % (0.0-3.0) Basophils (%) (Auto) 0.4 % (0.0-2.0) Sodium Level 145 MMOL/L (136-145) Potassium Level 2.5 MMOL/L (3.5-5.1) *L Chloride Level 111 MMOL/L (98-107) H Carbon Dioxide Level 22 MMOL/L (21-32) Anion Gap 12 mmol/L (5-15) Blood Urea Nitrogen 26 mg/dL (7-18) H Creatinine 1.6 MG/DL (0.55-1.30) H Estimat Glomerular Filtration Rate mL/min (>60) Glucose Level 81 MG/DL (74-106) Uric Acid 3.0 MG/DL (2.6-7.2) Calcium Level 7.8 MG/DL (8.5-10.1) L Phosphorus Level 3.5 MG/DL (2.5-4.9) Magnesium Level 1.4 MG/DL (1.8-2.4) L Total Bilirubin 20.8 MG/DL (0.2-1.0) H Direct Bilirubin 18.1 MG/DL (0.0-0.3) H Aspartate Amino Transf (AST/SGOT) 150 U/L (15-37) H Alanine Aminotransferase (ALT/SGPT) 91 U/L (12-78) H Alkaline Phosphatase 2909 U/L (46-116) H C-Reactive Protein, Quantitative 11.8 mg/dL (0.00-0.90) H Pro-B-Type Natriuretic Peptide 00800 pg/mL (0-125) H Total Protein 5.0 G/DL (6.4-8.2) L Albumin 1.3 G/DL (3.4-5.0) L Globulin 3.7 g/dL Albumin/Globulin Ratio 0.4 (1.0-2.7) L Random Vancomycin Level 17.9 ug/mL Height (Feet): 5 Height (Inches): 2.00 Weight (Pounds): 92 Medications Current Medications Medications (Trade) Dose Ordered Sig/Yvonne Route PRN Reason Start Time Stop Time Status Last Admin Dose Admin Acetaminophen (Tylenol) 650 mg Q4H PRN ORAL fever 11/03/17 18:15 12/01/17 22:14 Chlorhexidine Gluconate (Francisca-Hex 2%) 1 applic DAILY@2000 TOPIC 11/03/17 20:00 12/03/17 19:59 11/05/17 20:03 Heparin Sodium (Porcine) (Heparin 5000 units/ml) 5,000 units EVERY 12 HOURS SUBQ 11/03/17 21:00 12/02/17 08:59 11/06/17 21:16 Meropenem 1 gm/ Sodium Chloride 55 ml @ 110 mls/hr Q12H IVPB 11/04/17 03:00 11/07/17 14:59 11/06/17 15:32 Ondansetron HCl (Zofran) 4 mg Q6H PRN IVP Nausea & Vomiting 11/03/17 22:15 12/01/17 22:14 Pantoprazole (Protonix) 40 mg DAILY IVP 11/04/17 09:00 12/02/17 08:59 11/06/17 09:06 Polyethylene Glycol (Miralax) 17 gm DAILYPRN PRN ORAL Constipation 11/03/17 22:15 12/01/17 22:14 Potassium Chloride (K-Dur) 40 meq TWICE A DAY ORAL 11/06/17 09:30 12/06/17 09:29 11/06/17 17:33 Sodium Chloride 1,000 ml @ 50 mls/hr Q20H IVLG 11/04/17 17:00 12/04/17 16:59 11/06/17 09:05 Vancomycin HCl (Vanco rx to dose) 1 ea DAILY PRN MISC . 11/04/17 09:00 12/02/17 09:44 Assessment/Plan Status: stable Assessment/Plan anxiety d/o remeron 7.5mg qhs Evelyn Pineda M.D. Nov 06, 2017 22:41
--- NOTE | 2017-11-08 14:22 | Discharge Summary ---
Discharge Summary Hospital Course Date of Admission Nov 01, 2017 at 20:43 Date of Discharge Nov 06, 2017 at 21:50 Admitting Diagnosis severe sepsis, hypotension HPI Hossein Bernstein is a 77 year old female who was admitted on Nov 01, 2017 at 20: 43 for Severe Sepsis,Hypotension Hospital Course [id number] Discharge Discharge Disposition Patient was discharged to [facility] Discharge Diagnoses: Wendy Wilson NP Nov 08, 2017 14:22
--- NOTE | 2017-11-09 01:45 | Discharge Summary 2 SIG ---
DATE OF ADMISSION: 11/01/2017 DATE OF DISCHARGE: 11/06/2017 CONSULTANTS: 1. Srinivas Schaffer M.D. 2. Patrick Bustillo M.D. 3. Alexis Wilks M.D. 4. Evelyn Pineda M.D. BRIEF HOSPITAL COURSE: The patient is a 77-year-old female with history of pancreatic CA, was brought in by EMS for complaints of increased back pain. She was noted to be markedly jaundiced and had recent hospitalization at [facility]. On arrival to ED, she was hypotensive, blood pressure was 70/30. Central line was placed into the internal jugular vein. Blood work showed marked leukocytosis, WBC was 23.8 and potassium was 1.8. She was immediately started on intravenous potassium replacement as well as IV fluids. Hemoglobin level was 7.8 and hematocrit was 23. Creatinine was elevated to 1.6. Total bilirubin was 20 and direct bilirubin 18. AST 105, ALT 79, and alkaline phosphatase 1010. Blood pressure continued to decline. She was started on Levophed drip and was admitted to ICU and. She was placed on NPO. She was continued on IV fluids. The patient had a history of ERCP performed on 06/11/2016. She had a gallbladder mass and underwent ERCP with sphincterotomy dilation and stent placement. She was started on IV antibiotics, vancomycin, amikacin, and ertapenem was switched to meropenem. She had septic shock, likely due to cholangitis. Leukocytosis was worsening. On 11/02/2017, she underwent a cholangiogram and biliary drain exchange by radiology. The left drain was completely dislodged. Post procedure, she was started on diet. Laboratories were improving. She received a total of one unit packed RBC blood transfusion. Post transfusion, hemoglobin levels were stable. She had acute kidney failure. Renal parameters were monitored. She had an echocardiogram done that showed left ventricular function 55% to 60%. There was moderate mitral regurgitation and moderate tricuspid regurgitation with mild pulmonary hypertension. She was placed on DNR and DNI. She had anxiety disorder and was given Remeron 7.5 mg at bedtime. She is unable to leave home by herself. Recommended hospice evaluation. Family requested transfer to [facility]. She was eventually discharged to [facility]. FINAL DIAGNOSES: 1. Severe sepsis with septic shock secondary to cholangitis. 2. Cholangitis secondary to obstructive biliary drain status post cholangiogram with placement of a new drainage. 3. Cholestatic/hepatotoxic liver injury. 4. Acute kidney injury. 5. Pancreatic carcinoma. 6. Anxiety disorder. 7. Hyperbilirubinemia. 8. Severe protein-calorie malnutrition. 9. Hypoalbuminemia. 10. DNR and DNI. DISPOSITION: Patient was transferred to another hospital. Family refused hospice care due to financial issues. DISCHARGE MEDICATIONS: Continue with meropenem 1 g IV q.12 hours for one more week. Tammi Terry M.D. I have been assigned to dictate discharge summary on this account and I was not involved in the patient's management. Wendy Wilson N.P. DR: CHALO JOB#: [id number] CC: [facility]
== END 2017-11-06 21:50 | DRG 871 ==
LOC: EDBD 18:47 → EMR 19:32 → ICU 20:43 → EDBEDREQ 21:07 → 4E 11-03 16:40
PROC: 05HM33Z Insertion of Infusion Device into Right Internal Jugular Vein, Percutaneous Approach (ICD-10-PCS; principal; 2017-11-01)
PROC: BF101ZZ Fluoroscopy of Bile Ducts using Low Osmolar Contrast (ICD-10-PCS; 2017-11-02)
PROC: 0F9930Z Drainage of Common Bile Duct with Drainage Device, Percutaneous Approach (ICD-10-PCS; 2017-11-02)
PROC: 30233N1 Transfusion of Nonautologous Red Blood Cells into Peripheral Vein, Percutaneous Approach (ICD-10-PCS; 2017-11-03)
DX: A41.9 Sepsis, unspecified organism (principal); E43 Unspecified severe protein-calorie malnutrition; R65.21 Severe sepsis with septic shock; N17.9 Acute kidney failure, unspecified; K83.0 Cholangitis; C25.9 Malignant neoplasm of pancreas, unspecified; K71.0 Toxic liver disease with cholestasis; I27.20 Pulmonary hypertension, unspecified; Z68.1 Body mass index [BMI] 19.9 or less, adult; T85.520A Displacement of bile duct prosthesis, initial encounter; I34.0 Nonrheumatic mitral (valve) insufficiency; Y84.8 Other medical procedures as the cause of abnormal reaction of the patient, or of later complication, without mention of misadventure at the time of the procedure; R65.20 Severe sepsis without septic shock; E87.6 Hypokalemia; Z88.6 Allergy status to analgesic agent; I36.1 Nonrheumatic tricuspid (valve) insufficiency; Z66 Do not resuscitate; F41.9 Anxiety disorder, unspecified; I10 Essential (primary) hypertension; K21.9 Gastro-esophageal reflux disease without esophagitis; K82.8 Other specified diseases of gallbladder
CPT/HCPCS: 36415; 36600; 47532; 71010; 80053; 80061; 80202; 82140; 82248; 82550; 82553; 82803; 82977; 83036; 83605; 83735; 83880; 84100; 84443; 84484; 84550; 85007; 85025; 85610; 85730; 86140; 86850; 86900; 86901; 86920; 87040; 93005; 93306; 94664; 99285; J8499